=== PATIENT | female | born 1985 | race Caucasian/White ===

== ENCOUNTER → 2020-03-01 15:07 | Outpatient (BNVA) | payer OTHER, SELFPAY | PROVIDERS: Visit Provider Obstetrics & Gynecology | DX: Z12.4 Encounter for screening for malignant neoplasm of cervix (principal); Z20.2 Contact with and (suspected) exposure to infections with a predominantly sexual mode of transmission | CPT/HCPCS: 87491; 87591; 87661; 88175 ==

== ENCOUNTER → 2020-03-02 10:35 | Outpatient (BNVA) | payer OTHER, SELFPAY | PROVIDERS: Visit Provider Obstetrics & Gynecology | DX: Z30.9 Encounter for contraceptive management, unspecified (principal); Z30.42 Encounter for surveillance of injectable contraceptive | CPT/HCPCS: 81025 ==

== ENCOUNTER → 2020-03-22 10:27 | Outpatient (BNVA) | payer OTHER, SELFPAY | PROVIDERS: Visit Provider Obstetrics & Gynecology | DX: Z01.812 Encounter for preprocedural laboratory examination (principal) | CPT/HCPCS: 81025 ==

== ENCOUNTER → 2020-04-01 13:54 | Outpatient (BNVA) | payer OTHER, SELFPAY | PROVIDERS: Visit Provider Obstetrics & Gynecology | DX: Z01.812 Encounter for preprocedural laboratory examination (principal); R87.610 Atypical squamous cells of undetermined significance on cytologic smear of cervix (ASC-US); R87.810 Cervical high risk human papillomavirus (HPV) DNA test positive | CPT/HCPCS: 81025; 88305 ==

== ENCOUNTER 2020-07-22 09:22 | Emergency (ER) | payer OTHER, SELFPAY ==
[2020-07-22 09:30] VITALS: BP 146/94; PULSE 122; RESP 20; TEMP 36.5; O2SAT 97; BMI 29.8
--- NOTE | 2020-07-22 09:45 | PC.PHAR ---
pt states she was at yesterday and got a shot of steroids-pt states she was told to get pepcid otc but hasnt started taking yet
[2020-07-22] MEDS: diphenhydrAMINE 50 mg/mL SDV 1mL IVP (09:56)
[2020-07-22] MEDS: famotidine 20 mg/2 mL INJ 40 MG IVP (09:57)
--- NOTE | 2020-07-22 09:57 | ED_ITS ---
HPI - Allergic Reaction General: Chief complaint: Allergic Reaction Stated complaint: Allergic Reaction Time Seen by Provider: 07/22/20 09:23 History of Present Illness: HPI narrative: 35-year-old female presents to the emergency room with complaint of a rash. She had several reactions in the past she relates that to having tested positive for alpha gal. She is not having difficulty breathing she has urticaria on her extremities to a lesser extent on her face a little bit on her flanks but none on her abdomen or chest or back. States her skin feels like it is burning. She has had this several times in the past. She not sure what she might have gotten into. MD complaint: allergic reaction Onset (ago): minute(s) Exposure: unknown Associated symptoms: Reports facial swelling, itching and rash; Deny abdominal pain, difficulty breathing, dysphagia, dizziness, hoarseness, lip swelling, nausea, tongue swelling or vomiting Severity: moderate Review of Systems Const: Denies: fever(s), chills, body aches, change in appetite, fatigue or malaise ENMT: Denies: hoarseness Card: Denies: chest pain, edema, dyspnea on exertion or orthopnea Resp: Denies: dyspnea, productive cough or non-productive cough GI: Denies: abdominal pain, nausea, vomiting or dysphagia : Denies: flank pain, difficulty voiding, dysuria, urinary frequency or urinary urgency Skin/Breast: Denies: rash or pruritus Neuro: Denies: dizziness All/Imm: Reports: facial swelling; Denies: tongue swelling PFSH ED PFSH: Medical History (Updated 07/22/20 @ 11:19 by Hayder Shannon DO) ASCUS with positive high risk HPV cervical Surgical History H/O lithotripsy (Unknown) x 3 Hx of foot surgery (Unknown) x 2 Hx of oral surgery (Unknown) Family History Mother Thyroid disease Denies family history of Colon cancer Ovarian cancer Diabetes Clotting disorder Hyperlipidemia Breast cancer Hypertension Uterine cancer Stroke Social History (Updated 07/22/20 @ 09:38 by Jesus Medellin RN) Smoking and tobacco status: current every day smoker cigarettes Packs smoked per day: 1 Years cigarettes smoked: 2,016 Alcohol intake: current Alcohol intake frequency: few times a week Substance/Drug Use: never Physical Exam Const: COMMON NORMALS: no acute distress GENERAL APPEARANCE: cooperative and comfortable ORIENTATION/CONSCIOUSNESS: Yes awake, Yes oriented to person, Yes oriented to place and Yes oriented to time HENMT: COMMON NORMALS: normocephalic, atraumatic and hearing grossly normal bilaterally HEAD & SCALP: normocephalic and atraumatic Neck/C-Spine: COMMON NORMALS: no JVD Lymph: LYMPHATIC: no lymphadenopathy noted and no lymphedema noted Resp: COMMON NORMALS: normal respiratory effort, No retractions, No use of accessory muscles and clear to auscultation bilaterally AUSCULTATION: clear to auscultation bilaterally Cardio: COMMON NORMALS: no JVD, regular rate, regular rhythm and No murmurs present (Cardio) RATE: regular rate RHYTHM: regular rhythm GI: COMMON NORMALS: Soft to palpation and No hepatosplenomegaly present AUSCULTATION: Yes normoactive bowel sounds PALPATION: Yes Soft to palpation, No Tenderness to palpation present (GI), No Guarding due to palpation present (GI) and Yes No hepatosplenomegaly present Extremity: COMMON NORMALS: normal to inspection, capillary refill normal, no clubbing, cyanosis or edema, no calf tenderness and no pedal edema Neuro: SENSORIUM/ORIENTATION: Yes oriented to person, Yes oriented to place and Yes oriented to time Skin: NARRATIVE SKIN EXAM: Urticaria on the extremities very slightly on the lower flag just above the belt line. None on the abdomen chest or back. Somewhat on the face no lip swelling no swelling of the posterior pharyngeal wall or uvula. No stridor. Course Vital Signs: Vital signs: Vital Signs Temperature 97.7 F 07/22/20 09:30 Pulse Rate 68 07/22/20 11:31 Respiratory Rate 18 07/22/20 11:31 Blood Pressure 128/88 07/22/20 11:31 Pulse Oximetry 99 07/22/20 11:31 MDM - Allergic Reaction MDM Narrative: Medical decision making narrative: Mildly improved we will discharge her home on steroids and hydroxyzine. Retry to help get her set up with a primary care physician who can get her referred to an communications and signals supervisor at [facility] if has problems breathing. Discharge Plan Discharge Patient Disposition: Home Clinical Impression: Urticaria Condition: Stable Prescriptions: New dexamethasone 6 mg tablet 6 mg PO DAILY Qty: 7 RF: 0 hydroxyzine HCl 25 mg tablet 25 mg PO Q6H PRN (Reason: itching) Qty: 20 RF: 0 No Action diphenhydramine HCl [Benadryl] 25 mg capsule 25 mg PO TID PRN (Reason: unknown) RF: 0 All Day Allergy (cetirizine) 10 mg capsule 20 mg PO BID PRN (Reason: unknown) RF: 0 medroxyprogesterone [Depo-Provera] 150 mg/mL suspension 150 mg IM .every 3 months Qty: 1 RF: 3 famotidine 10 mg Tablet 10 - 20 mg PO PRN RF: 0 Discharge Orders: Discharge ED (Routine); Ordered 07/22/20 Ordered By: Hayder Shannon Discharge Diet: Usual diet Discharge Activity: Resume usual activity Activity Restrictions/Additional Instructions: Management will help get you set up with a primary care physician. Recommend taking the steroids and antihistamines prescribed today then following up with your primary care for referral to an communications and signals supervisor at a tertiary care center. Coding Level of Care Code ED Metal Sorter for [facility] Fwd Exam Comprehensive
[2020-07-22 10:35] VITALS: BP 148/88; PULSE 78; RESP 18; O2SAT 100
[2020-07-22 11:00] VITALS: BP 128/88; PULSE 68; RESP 18; O2SAT 99
[2020-07-22 11:31] VITALS: BP 128/88; PULSE 68; RESP 18; O2SAT 99
--- NOTE | 2020-07-25 15:41 | DCPLANNER ---
manager cardiovascular had message to speak with patient about getting established with a primary care physician. manager cardiovascular called phone number [phone], a voicemail was left for patient to return protective services case worker phone call.
== END 2020-07-22 11:33 | disposition home or self-care (01) ==
PROVIDERS: Emergency Provider Family Medicine
DX: L50.9 Urticaria, unspecified (principal); F17.210 Nicotine dependence, cigarettes, uncomplicated
CPT/HCPCS: 12345; 96374; 96375; 99283; J1200; J2930; J3490

== ENCOUNTER → 2021-05-01 10:23 | Outpatient (BNVA) | payer OTHER, SELFPAY | PROVIDERS: Visit Provider Obstetrics & Gynecology | DX: Z12.4 Encounter for screening for malignant neoplasm of cervix (principal); R87.610 Atypical squamous cells of undetermined significance on cytologic smear of cervix (ASC-US); R87.810 Cervical high risk human papillomavirus (HPV) DNA test positive | CPT/HCPCS: 87624 ==

== ENCOUNTER → 2021-06-28 08:32 | Outpatient (BNVA) | payer OTHER, SELFPAY | PROVIDERS: Visit Provider Obstetrics & Gynecology | DX: D25.1 Intramural leiomyoma of uterus (principal); R10.32 Left lower quadrant pain; N92.0 Excessive and frequent menstruation with regular cycle | CPT/HCPCS: 76830 ==

== ENCOUNTER 2021-07-25 08:19 | Emergency (ER) | payer OTHER, SELFPAY | END 2021-07-25 09:12 | disposition left against medical advice (07) | PROVIDERS: Emergency Provider Family Medicine | DX: Z53.21 Procedure and treatment not carried out due to patient leaving prior to being seen by health care provider (principal) | CPT/HCPCS: 80053; 81000; 83690; 85025 ==

== ENCOUNTER → 2022-05-04 14:30 | Outpatient (BNVA) | payer OTHER, SELFPAY | PROVIDERS: Visit Provider Obstetrics & Gynecology | DX: R39.9 Unspecified symptoms and signs involving the genitourinary system (principal); Z12.4 Encounter for screening for malignant neoplasm of cervix; R87.610 Atypical squamous cells of undetermined significance on cytologic smear of cervix (ASC-US); R87.810 Cervical high risk human papillomavirus (HPV) DNA test positive; Z30.09 Encounter for other general counseling and advice on contraception | CPT/HCPCS: 81000; 87624 ==

== ENCOUNTER → 2022-06-14 10:49 | Outpatient (BNVA) | payer OTHER, SELFPAY | PROVIDERS: Visit Provider Registered Nurse Neonatal Intensive Care | DX: M54.9 Dorsalgia, unspecified (principal); T78.40XA Allergy, unspecified, initial encounter | CPT/HCPCS: 81000; 87086 ==

== ENCOUNTER → 2022-07-17 13:08 | Outpatient (BNVA) | payer OTHER, SELFPAY | PROVIDERS: Visit Provider Obstetrics & Gynecology | DX: Z30.09 Encounter for other general counseling and advice on contraception (principal); R87.610 Atypical squamous cells of undetermined significance on cytologic smear of cervix (ASC-US); R87.810 Cervical high risk human papillomavirus (HPV) DNA test positive; Z30.017 Encounter for initial prescription of implantable subdermal contraceptive | CPT/HCPCS: 81025; 88305 ==

== ENCOUNTER 2022-12-04 09:22 | Inpatient (IN) | payer OTHER, SELFPAY ==
[2022-12-04] VITALS (10 sets, daily range): BP systolic 105–144; BP diastolic 69–110; PULSE 64–96; RESP 16–18; TEMP 36.4–37.1; O2SAT 92–99; BMI 28.2
--- NOTE | 2022-12-04 09:56 | W.ED.ABDPA2 ---
Documented by User: CHICHI Huang 12/04/22 17:18 HPI - Abdominal Pain General: Chief Complaint: Abdominal Pain Stated Complaint: urogenital Time Seen by Provider: 12/04/22 09:38 History of Present Illness: Patient is a 37-year-old female comes to the ED with flank pain. Patient has a history of kidney stones. She states that her flank pain started approximately 10 days ago. She saw all her PCP at [facility] and they did an abdominal x-ray and could see kidney stones on the left side. Currently she is having 7 out of 10 pain in her flanks bilaterally but states that her right flank hurts a lot worse than her left. Last night she has had trouble urinating and this morning she was able to urinate a little bit. She nausea multiple episodes of emesis last night as well. Associated Symptoms: Denies chills, constipation, diarrhea, dysuria, fever(s), hematochezia, hematuria, nausea and vomiting Review of Systems Const: Denies: fever(s), chills or fatigue Eyes: Denies: change in vision or eye discomfort ENMT: Denies: throat pain, odynophagia, nasal discharge or nasal congestion Card: Denies: chest pain, palpitations, edema, swelling of feet/ankles, dyspnea on exertion or orthopnea Resp: Denies: dyspnea, productive cough or non-productive cough GI: Denies: abdominal pain, nausea, vomiting, diarrhea, constipation or hematochezia : Reports: flank pain; Denies: dysuria or hematuria Musc: Denies: neck pain, back pain or extremity swelling Skin/Breast: Denies: rash or new lesions Neuro: Denies: headache(s), numbness in extremities or weakness in extremities PFSH ED PFSH: Medical History Acute left flank pain ASCUS with positive high risk HPV cervical Kidney stones Pyelonephritis Surgical History H/O lithotripsy (Unknown) x 3 Hx of foot surgery (Unknown) x 2 Hx of oral surgery (Unknown) Family History Mother Thyroid disease Thyroid cancer Denies family history of Colon cancer Ovarian cancer Diabetes Clotting disorder Hyperlipidemia Breast cancer Anesthesia complication Bleeding disorder Hypertension Uterine cancer Stroke Social History Smoking and tobacco status: current every day smoker cigarettes Packs smoked per day: 1 Alcohol intake: current Alcohol intake frequency: 3 or more drinks per day Alcohol type: hard liquor Substance/Drug Use: never Physical Exam Const: COMMON NORMALS: patient oriented x3 and alert GENERAL APPEARANCE: cooperative HENMT: COMMON NORMALS: normocephalic HEAD & SCALP: normocephalic MOUTH: Normal oral and palatal mucosa present THROAT: posterior oropharynx normal and uvula midline Neck/C-Spine: COMMON NORMALS: supple GENERAL: Yes normal visual inspection Resp: COMMON NORMALS: normal respiratory effort, No retractions, No use of accessory muscles and clear to auscultation bilaterally AUSCULTATION: clear to auscultation bilaterally Cardio: COMMON NORMALS: regular rate, regular rhythm, S1 normal heart sound present, S2 normal heart sound present, No gallops present (Cardio), No clicks present (Cardio), No murmurs present (Cardio) and Peripheral pulses 2+ throughout RATE: regular rate RHYTHM: regular rhythm HEART SOUNDS: S1 normal heart sound present and S2 normal heart sound present PERIPHERAL PULSES: Peripheral pulses 2+ throughout GI: COMMON NORMALS: Normal to inspection, nondistended, normoactive bowel sounds present, Soft to palpation, non-tender and no masses PALPATION: Yes Soft to palpation : BLADDER/KIDNEY EXAM: Yes CVA tenderness bilateral Back/Pelvis: GENERAL BACK: Yes CVA tenderness Extremity: COMMON NORMALS: normal to inspection Neuro: COMMON NORMALS: patient oriented x3 SENSORIUM/ORIENTATION: Yes alert GAIT: Yes Normal gait present Skin: GENERAL SKIN EXAM: dry skin Course Vital Signs: Vital signs: Vital Signs Temperature 97.6 F 12/04/22 17:13 Pulse Rate 86 12/04/22 17:13 Respiratory Rate 16 12/04/22 17:13 Blood Pressure 125/79 12/04/22 17:13 Pulse Oximetry 95 12/04/22 17:13 Oxygen Delivery Me thod Room Air 12/04/22 17:13 MDM - Abdominal Pain Medical Decision Making Patient is a 37-year-old female comes to the ED with bilateral flank pain. Vitals are stable. Patient has bilateral CVA tenderness. CT of abdomen pelvis shows a kidney stone approximately 10 x 8 mm in the left UPJ. Urine, CBC and CMP were unremarkable. Patient's pain was difficult to control. I discussed case with Dr. Mata and he reviewed the CT images and he recommended patient be admitted for pain control and procedure to have stone removed tomorrow. Lab Data I reviewed the patient's lab results. 12/04/22 09:49 12/04/22 09:49 Labs/Radiology: Radiology Impressions Abdomen/Pelvis CT 12/04/22 09:57 IMPRESSION: 1. Moderate to severe LEFT hydronephrosis secondary to a large 10 x 8 mm calcification at the UP junction. 2. Additional bilateral nonobstructing renal calcifications. Normal appendix. Laboratory Results WBC 4.1 10^3/uL (4.0-10.0) 12/04/22 09:49 RBC 4.42 10^6/uL (4.1-5.3) 12/04/22 09:49 Hgb 15.5 g/dL (11.5-15.3) H 12/04/22 09:49 Hct 45.3 % (37.0-47.0) 12/04/22 09:49 MCV 102.5 fl (81-99) H 12/04/22 09:49 MCH 35.1 pg (28.0-34.0) H 12/04/22 09:49 MCHC 34.2 g/dL (30.0-36.0) 12/04/22 09:49 RDW 11.9 % (12.1-15.1) L 12/04/22 09:49 Plt Count 303 10^3/cmm (130-400) 12/04/22 09:49 MPV 9.7 fL (7.4-10.4) 12/04/22 09:49 Neut % (Auto) 61.4 % 12/04/22 09:49 Lymph % (Auto) 27.5 % 12/04/22 09:49 [place] % (Auto) 8.7 % 12/04/22 09:49 Eos % (Auto) 1.7 % 12/04/22 09:49 Baso % (Auto) 0.7 % 12/04/22 09:49 Neut # (Auto) 2.54 10^3/uL (1.8-7.7) 12/04/22 09:49 Lymph # (Auto) 1.1 10^3/uL (0.8-4.8) 12/04/22 09:49 [place] # (Auto) 0.4 10^3/uL (0.2-0.9) 12/04/22 09:49 Eos # (Auto) 0.1 10^3/uL (0.0-0.8) 12/04/22 09:49 Baso # (Auto) 0.0 10^3/uL (0.0-0.1) 12/04/22 09:49 Nucleated RBC % (auto) 0 % 12/04/22 09:49 Nucleated RBCs # 0.0 /100WBC 12/04/22 09:49 Sodium 138 mmol/L (136-145) 12/04/22 09:49 Potassium 3.7 mmol/L (3.5-5.1) 12/04/22 09:49 Chloride 101 mmol/L (98-107) 12/04/22 09:49 Carbon Dioxide 23 mmol/L (22-29) 12/04/22 09:49 Anion Gap 17.7 (5-19) 12/04/22 09:49 BUN 8 mg/dL (6-20) 12/04/22 09:49 Creatinine 0.6 mg/dL (0.5-0.9) 12/04/22 09:49 GFR Calculation 112.5 mL/min (90-130) 12/04/22 09:49 Glucose 69 mg/dL (65-115) 12/04/22 09:49 Calculated Osmolality 283 mOsm/kg (285-295) L 12/04/22 09:49 Calcium 9.5 mg/dL (8.5-10.5) 12/04/22 09:49 Total Bilirubin 0.8 mg/dL (0.15-1.2) 12/04/22 09:49 AST 20 U/L (0-32) 12/04/22 09:49 ALT 17 U/L (0-33) 12/04/22 09:49 Alkaline Phosphatase 72 U/L (35-105) 12/04/22 09:49 Total Protein 7.7 g/dL (6.6-8.7) 12/04/22 09:49 Albumin 5.0 g/dL (3.5-5.2) 12/04/22 09:49 Globulin 2.7 g/dL (1.3-4.6) 12/04/22 09:49 Lipase 12 U/L (13-60) L 12/04/22 09:49 HCG, Qual Negative (Negative) 12/04/22 09:49 Urine Color Dark yellow (Yellow) 12/04/22 09:40 Urine Appearance Sl hazy (CLEAR) A 12/04/22 09:40 Urine pH 6 (5-7) 12/04/22 09:40 Ur Specific [place] 1.025 (1.005-1.030) 12/04/22 09:40 Urine Protein Neg (Negative) 12/04/22 09:40 Urine Glucose (UA) Norm (Normal) 12/04/22 09:40 Urine Ketones 1+ (Negative) H 12/04/22 09:40 Urine Blood Neg (Negative) 12/04/22 09:40 Urine Nitrate Negative (Negative) 12/04/22 09:40 Urine Bilirubin Neg (Negative) 12/04/22 09:40 Urine Urobilinogen Norm mg/dL (Negative) 12/04/22 09:40 Ur Leukocyte Esterase Negative (Negative) 12/04/22 09:40 Urine RBC Rare /hpf (0-2) 12/04/22 09:40 Urine WBC 10-15 /hpf (0-5) H 12/04/22 09:40 Ur Squamous Epith Cells 10-15 /hpf (0-5) H 12/04/22 09:40 Amorphous Sediment Not Reportable 12/04/22 09:40 Urine Bacteria Trace /hpf (NONE) 12/04/22 09:40 Urine Mucus Trace /hpf 12/04/22 09:40 Discharge Plan Discharge Patient Disposition: Admitted As Inpatient Admit Provider: Ryder Mata Clinical Impression: Kidney stones Condition: Stable Sign Out Sign Out Data: Patient Sign Out occurred on 12/04/22 at 13:38. Patient's care was discussed, and care was transferred from to Hayder Shannon DO. 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 [employer]g Fwd Documented by User: Hayder Shannon DO 12/04/22 16:49 HPI - Abdominal Pain General: Chief Complaint: Abdominal Pain Stated Complaint: urogenital Time Seen by Provider: 12/04/22 09:38 [facility] ED PFSH: Medical History Acute left flank pain ASCUS with positive high risk HPV cervical Kidney stones Pyelonephritis Surgical History H/O lithotripsy (Unknown) x 3 Hx of foot surgery (Unknown) x 2 Hx of oral surgery (Unknown) Family History Mother Thyroid disease Thyroid cancer Denies family history of Colon cancer Ovarian cancer Diabetes Clotting disorder Hyperlipidemia Breast cancer Anesthesia complication Bleeding disorder Hypertension Uterine cancer Stroke Social History Smoking and tobacco status: current every day smoker cigarettes Packs smoked per day: 1 Alcohol intake: current Alcohol intake frequency: 3 or more drinks per day Alcohol type: hard liquor Substance/Drug Use: never Course Vital Signs: Vital signs: Vital Signs Temperature 97.6 F 12/04/22 17:13 Pulse Rate 86 12/04/22 17:13 Respiratory Rate 16 12/04/22 17:13 Blood Pressure 125/79 12/04/22 17:13 Pulse Oximetry 95 12/04/22 17:13 Oxygen Delivery Me thod Room Air 12/04/22 17:13 MDM - Abdominal Pain Medical Decision Making Patient is a 37-year-old female comes to the ED with bilateral flank pain. Vitals are stable. Patient has bilateral CVA tenderness. CT of abdomen pelvis shows a kidney stone approximately 10 x 8 mm in the left UPJ. Urine, CBC and CMP were unremarkable. Patient's pain was difficult to control. I discussed case with Dr. Mata and he reviewed the CT images and he recommended patient be admitted for pain control and procedure to have stone removed tomorrow. Chart reviewed and patient discussed with midlevel. Agree with assessment and plan. Orders written for admission Lab Data 12/04/22 09:49 12/04/22 09:49 Labs/Radiology: Radiology Impressions Abdomen/Pelvis CT 12/04/22 09:57 IMPRESSION: 1. Moderate to severe LEFT hydronephrosis secondary to a large 10 x 8 mm calcification at the UP junction. 2. Additional bilateral nonobstructing renal calcifications. Normal appendix. Laboratory Results WBC 4.1 10^3/uL (4.0-10.0) 12/04/22 09:49 RBC 4.42 10^6/uL (4.1-5.3) 12/04/22 09:49 Hgb 15.5 g/dL (11.5-15.3) H 12/04/22 09:49 Hct 45.3 % (37.0-47.0) 12/04/22 09:49 MCV 102.5 fl (81-99) H 12/04/22 09:49 MCH 35.1 pg (28.0-34.0) H 12/04/22 09:49 MCHC 34.2 g/dL (30.0-36.0) 12/04/22 09:49 RDW 11.9 % (12.1-15.1) L 12/04/22 09:49 Plt Count 303 10^3/cmm (130-400) 12/04/22 09:49 MPV 9.7 fL (7.4-10.4) 12/04/22 09:49 Neut % (Auto) 61.4 % 12/04/22 09:49 Lymph % (Auto) 27.5 % 12/04/22 09:49 [place] % (Auto) 8.7 % 12/04/22 09:49 Eos % (Auto) 1.7 % 12/04/22 09:49 Baso % (Auto) 0.7 % 12/04/22 09:49 Neut # (Auto) 2.54 10^3/uL (1.8-7.7) 12/04/22 09:49 Lymph # (Auto) 1.1 10^3/uL (0.8-4.8) 12/04/22 09:49 [place] # (Auto) 0.4 10^3/uL (0.2-0.9) 12/04/22 09:49 Eos # (Auto) 0.1 10^3/uL (0.0-0.8) 12/04/22 09:49 Baso # (Auto) 0.0 10^3/uL (0.0-0.1) 12/04/22 09:49 Nucleated RBC % (auto) 0 % 12/04/22 09:49 Nucleated RBCs # 0.0 /100WBC 12/04/22 09:49 Sodium 138 mmol/L (136-145) 12/04/22 09:49 Potassium 3.7 mmol/L (3.5-5.1) 12/04/22 09:49 Chloride 101 mmol/L (98-107) 12/04/22 09:49 Carbon Dioxide 23 mmol/L (22-29) 12/04/22 09:49 Anion Gap 17.7 (5-19) 12/04/22 09:49 BUN 8 mg/dL (6-20) 12/04/22 09:49 Creatinine 0.6 mg/dL (0.5-0.9) 12/04/22 09:49 GFR Calculation 112.5 mL/min (90-130) 12/04/22 09:49 Glucose 69 mg/dL (65-115) 12/04/22 09:49 Calculated Osmolality 283 mOsm/kg (285-295) L 12/04/22 09:49 Calcium 9.5 mg/dL (8.5-10.5) 12/04/22 09:49 Total Bilirubin 0.8 mg/dL (0.15-1.2) 12/04/22 09:49 AST 20 U/L (0-32) 12/04/22 09:49 ALT 17 U/L (0-33) 12/04/22 09:49 Alkaline Phosphatase 72 U/L (35-105) 12/04/22 09:49 Total Protein 7.7 g/dL (6.6-8.7) 12/04/22 09:49 Albumin 5.0 g/dL (3.5-5.2) 12/04/22 09:49 Globulin 2.7 g/dL (1.3-4.6) 12/04/22 09:49 Lipase 12 U/L (13-60) L 12/04/22 09:49 HCG, Qual Negative (Negative) 12/04/22 09:49 Urine Color Dark yellow (Yellow) 12/04/22 09:40 Urine Appearance Sl hazy (CLEAR) A 12/04/22 09:40 Urine pH 6 (5-7) 12/04/22 09:40 Ur Specific [place] 1.025 (1.005-1.030) 12/04/22 09:40 Urine Protein Neg (Negative) 12/04/22 09:40 Urine Glucose (UA) Norm (Normal) 12/04/22 09:40 Urine Ketones 1+ (Negative) H 12/04/22 09:40 Urine Blood Neg (Negative) 12/04/22 09:40 Urine Nitrate Negative (Negative) 12/04/22 09:40 Urine Bilirubin Neg (Negative) 12/04/22 09:40 Urine Urobilinogen Norm mg/dL (Negative) 12/04/22 09:40 Ur Leukocyte Esterase Negative (Negative) 12/04/22 09:40 Urine RBC Rare /hpf (0-2) 12/04/22 09:40 Urine WBC 10-15 /hpf (0-5) H 12/04/22 09:40 Ur Squamous Epith Cells 10-15 /hpf (0-5) H 12/04/22 09:40 Amorphous Sediment Not Reportable 12/04/22 09:40 Urine Bacteria Trace /hpf (NONE) 12/04/22 09:40 Urine Mucus Trace /hpf 12/04/22 09:40 Discharge Plan Discharge Patient Disposition: Admitted As Inpatient Admit Provider: Ryder Mata Clinical Impression: Kidney stones Condition: Stable Sign Out Sign Out Data: Patient Sign Out occurred on 12/04/22 at 13:38. Patient's care was discussed, and care was transferred from to Hayder Shannon DO. 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
--- NOTE | 2022-12-04 09:57 | CT_ITS ---
WS: [id number] CT ABDOMEN AND PELVIS NONCONTRAST HISTORY: Bilateral flank pain, right more painful than the left TECHNIQUE: Imaging performed through the abdomen and pelvis. Coronal and sagittal reformats are submi tted. All CT scans at [facility] use at least one of these dose optimization techniques: auto mated exposure control; mA and/or kV adjustment per patient size (includes targeted exams where dose is matched to clinical indication); or iterative reconstruction. DLP: 564.36 mGy.cm COMPARISON: 01/30/2018 Lower thorax: Lung bases are clear. Visualized heart is normal. No hiatal hernia. Liver: Normal size liver. No mass or bile duct dilatation. Gallbladder: Normal gallbladder. No pericholecystic fluid or cholelithiasis. No gallbladder wall thic kening. Pancreas: Normal size and attenuation. Normal pancreatic duct. No pancreatitis or mass. Spleen: Normal. Adrenal glands: Normal. No mass. Right kidney: Normal size. Nonobstructing calcifications in the renal pelvis. No obstruction. Largest calcification is 3 mm. Left kidney: Enlarged edematous LEFT kidney with moderate to severe hydronephrosis. Renal obstruction secondary to a large calcification measuring 10 x 8 mm at the UP junction. Ureter distal to this aaron cification is normal. There are a few additional calcifications which are nonobstructing in the LEFT renal pelvis. Aorta: Normal abdominal aorta, no aneurysm or atherosclerosis. No free fluid, intraperitoneal air or significant lymphadenopathy. GI tract: Normal noncontrast imaging of the stomach, small bowel and colon. No obstruction or wall th ickening. Normal appendix. Abdominal wall: Negative. No hernia. Pelvis: No free fluid. Uterus is normal size. RIGHT ovarian follicle maximum diameter of 2.4 cm. 1. Osseous structures: Bone island LEFT ilium and RIGHT hip. CT/CT kidney stone [id number] IMPRESSION: 1. Moderate to severe LEFT hydronephrosis secondary to a large 10 x 8 mm calcif ication at the UP junction. 2. Additional bilateral nonobstructing renal calcifications. Normal appendix.
[2022-12-04 10:05] LABS: Basophils % 0.7 %; Eosinophils # 0.1 10^3/uL (0.0-0.8); Eosinophils % 1.7 %; Hematocrit 45.3 % (37.0-47.0); Hemoglobin 15.5 g/dL (11.5-15.3); Lymphocytes # 1.1 10^3/uL (0.8-4.8); Lymphocytes % 27.5 %; Mean Corpuscular HGB Conc 34.2 g/dL (30.0-36.0); Mean Corpuscular Hemoglobin 35.1 pg (28.0-34.0); Mean Corpuscular Volume 102.5 fl (81-99); Mean Platelet Volume 9.7 fL (7.4-10.4); Monocytes # 0.4 10^3/uL (0.2-0.9); Monocytes % 8.7 %; Neutrophils # 2.54 10^3/uL (1.8-7.7); Neutrophils % 61.4 %; Nucleated Red Blood Cells % 0 %; Platelet Count 303 10^3/cmm (130-400); Red Blood Count 4.42 10^6/uL (4.1-5.3); Red Cell Distribution Width 11.9 % (12.1-15.1); White Blood Count 4.1 10^3/uL (4.0-10.0)
[2022-12-04] MEDS: ondansetron 2 mg/ML SDV 2 mL 4 MG IVP ×2 (10:22→16:28)
[2022-12-04] MEDS: sodium chloride 0.9% 1,000 ML 999 ML IV (10:22)
[2022-12-04] MEDS: morphine 4 mg/mL SDV 1 mL IVP ×2 (10:22→21:41)
[2022-12-04 10:27] LABS: Alanine Aminotransferase 17 U/L (0-33); Alkaline Phosphatase 72 U/L (35-105); Anion Gap 17.7 (5-19); Aspartate Amino Transferase 20 U/L (0-32); Blood Urea Nitrogen 8 mg/dL (6-20); Calcium 9.5 mg/dL (8.5-10.5); Carbon Dioxide 23 mmol/L (22-29); Chloride 101 mmol/L (98-107); Globulin 2.7 g/dL (1.3-4.6); Glomerular Filtration Rate 112.5 mL/min (90-130); Glucose 69 mg/dL (65-115); HCG, Serum Qual Negative (Negative); Lipase 12 U/L (13-60); Osmolality Calculated 283 mOsm/kg (285-295); Potassium 3.7 mmol/L (3.5-5.1); Sodium 138 mmol/L (136-145); Total Bilirubin 0.8 mg/dL (0.15-1.2); Total Protein 7.7 g/dL (6.6-8.7)
[2022-12-04 11:02] LABS: Bilirubin Urine Neg (Negative); Blood Urine Neg (Negative); Glucose Urine UA Norm (Normal); Ketones Urine 1+ (Negative); Nitrate Urine Negative (Negative); Protein Urine Neg (Negative); Specific Gravity, Urine 1.025 (1.005-1.030); Urine Appearance SL Hazy (CLEAR); Urine Color Dark Yellow (Yellow); pH Urine 6 (5-7)
[2022-12-04 11:03] LABS: Add Urine Microscopic? YES; Bacteria Urine TRACE /hpf; Leukocyte Esterase Urine Negative (Negative); RBC Urine RARE /hpf (0-2); Urobilinogen Urine Norm (Negative)
[2022-12-04 11:04] LABS: Add Urine Culture? No; Mucus Urine TRACE /hpf
[2022-12-04] MEDS: HYDROmorphone 1 mg/mL INJ 1 mL IVP (11:48)
[2022-12-04] MEDS: nicotine 21 mg Patch 1 PATCH TRANSDERMA (11:51)
[2022-12-04] MEDS: metoclopramide 5 mg/mL SDV 2 mL 10 MG IVP ×2 (12:52→21:16)
--- NOTE | 2022-12-04 12:56 | PC.NURSE ---
meds pushed by aiyana lazo rn
--- NOTE | 2022-12-04 13:17 | PC.PHAR ---
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
--- NOTE | 2022-12-04 14:18 | P.HP_ITS ---
Providers/Chief Complaint Chief Complaint: urogenital History of Present Illness Nilsa Bernard is a 37 year old female to the emergency department for refractory back pain in both flanks but right greater than sign left. History of stones. CT scan was ordered. It demonstrated a chronically obstructing left UPJ stone measuring about 1.1 cm with significant amount of ureteral inflam matory changes surrounding the stone. No pathology could be identified on the right side. She also did complain of some irritative type voiding symptoms and at times feeling that she could not empty completely. Pain could not be readily controlled in the emergency department. She was admitted because of the severity of her pain. On careful questioning she admitted that she had some off-and-on much lesser pain for >a month. No evidence of infection. White count was normal. Creatinine was 0.6. Urinalysis did show pyuria. CT scan: 1 cm stone obstructing the left UPJ. Severe pelvocaliectasis with evidence of some renal parenchymal thinning likely pointing to the stone being in that place for quite some time. Also a small nonobstructing RIGHT renal calculus Historically she has passed multiple stones and has had extracorporeal shockwave lithotripsy along with stenting on several occasions. She reports that the stones have been confirmed to have been cleared after treatment. Discussed the findings in detail with her and her family member. Reviewed the likelihood that this is a chronic process which may make it much more difficult to to clear with conventional methods. Extracorporal shockwave lithotripsy was explained as well as endoscopic approaches both retrograde and antegrade. Due to the obvious chronic inflammatory changes on the CT scan surrounding the stone I recommended endoscopic approach first. Did review that occasionally it is not possible to safely access the stone with ureteroscope which would lead to a stent for passive dilation and reattempt later with a much safer capacity to access the stone. Also reviewed the possibility of inability to access at all even with a wire or stent in a retrograde approach necessitating transfer to institution with interventional radiology for percutaneous/antegrade access possible stent placement versus percutaneous nephrostomy tube. Benefits risk potential complications alternatives thoroughly reviewed with the patient. She has good questions and seemed content with my answers. Informed consent was obtained for cystoscopy, LEFT: Retrograde, ureteroscopy, laser, stent Review of Systems Const: Denies: fever(s) or chills Eyes: Denies: change in vision or yellow eyes ENMT: Denies: hoarseness Card: Denies: chest pain or palpitations Resp: Denies: dyspnea, productive cough or wheezing GI: Reports: abdominal pain, nausea and vomiting; Denies: change in bowel habits : Reports: flank pain, difficulty voiding and dysuria Musc: Denies: joint redness Skin/Breast: Denies: jaundice Neuro: Denies: Slurred speech present or seizure-like activity Psych: Denies: difficulty concentrating Endo: Denies: flushing Beny/Lymph: Denies: easy bruising or easy bleeding All/Imm: Denies: acute wheezing Medications/Allergies Home Medications Medication Instructions Recorded Confirmed Last Taken Type hydroxyzine HCl 25 mg tablet 25 mg PO Q6H PRN itching #20 tabs 07/22/20 12/04/22 Unknown Rx buspirone 10 mg tablet 10 mg PO TID PRN Anxiety 05/01/21 12/04/22 Unknown History diphenhydramine HCl 25 mg capsule 25 - 50 mg PO TID PRN Allergy 12/04/22 12/04/22 Unknown History (Benadryl) Symptoms famotidine 20 mg tablet (Pepcid) 20 mg PO DAILY PRN Heartburn 12/04/22 12/04/22 Unknown History ibuprofen 200 mg tablet 600 mg PO Q6H PRN Pain 12/04/22 12/04/22 Unknown History meloxicam 7.5 mg tablet 7.5 mg PO BEDTIME 12/04/22 12/04/22 2 Days Ago History ~12/02/22 ondansetron 4 mg disintegrating 4 mg PO BID PRN Nausea And Vomiting 12/04/22 12/04/22 12/04/22 07:00 History tablet Allergies Allergy/AdvReac Type Severity Reaction Status Date / Time Alpha-Gal Allergy Unknown Verified 12/04/22 13:09 ([id number]-Gwscl-4,3-Gala beef derived (bovine) Allergy ALGY-Hives Verified 07/17/22 12:49 gelatin Allergy ALGY-Hives Verified 07/17/22 12:49 pork derived (porcine) Allergy ALGY-Hives Verified 07/17/22 12:49 gel capsules Allergy ALGY-Hives Uncoded 07/17/22 12:49 PFSH Acute PFSH: Medical History Acute left flank pain ASCUS with positive high risk HPV cervical Kidney stones Pyelonephritis Surgical History H/O lithotripsy (Unknown) x 3 Hx of foot surgery (Unknown) x 2 Hx of oral surgery (Unknown) Family History Mother Thyroid disease Thyroid cancer Denies family history of Colon cancer Ovarian cancer Diabetes Clotting disorder Hyperlipidemia Breast cancer Anesthesia complication Bleeding disorder Hypertension Uterine cancer Stroke Social History Smoking and tobacco status: current every day smoker cigarettes Packs smoked per day: 1 Alcohol intake: current Alcohol intake frequency: 3 or more drinks per day Alcohol type: hard liquor Substance/Drug Use: never Vitals/I&O/Wt Last Vital Signs Temp 98.7 F 12/04/22 09:32 Pulse 68 12/04/22 13:16 Resp 16 12/04/22 11:52 BP 127/75 12/04/22 13:16 Pulse Ox 92 12/04/22 13:16 O2 Del Method Room Air 12/04/22 13:16 12/03/22 12/04/22 12/04/22 22:59 06:59 14:59 Intake Total 1000 / 1000 Balance 1000 / 1000 Weight last 48 hrs Weight 175 lb Physical Exam Const: COMMON NORMALS: alert and well nourished GENERAL APPEARANCE: well kempt and well developed ORIENTATION/CONSCIOUSNESS: not confused HENMT: COMMON NORMALS: normocephalic HEAD & SCALP: normal to inspection and normocephalic Eye: COMMON NORMALS: conjunctivae normal and no scleral icterus CONJUNCTIVA: Yes conjunctivae normal Neck/C-Spine: GENERAL: Yes normal visual inspection Lymph: LYMPHATIC: no lymphadenopathy noted and no lymphedema noted Chest: OTHER: Normal chest movements Resp: COMMON NORMALS: normal respiratory effort EFFORT & INSPECTION: Yes able to speak in complete sentences, No labored and No Actively coughing Cardio: COMMON NORMALS: regular rate and regular rhythm GI: OTHER: Bilateral upper quadrant tenderness. No rebound. No surgical abdomen. No masses. No bloating : OTHER: Bladder nondistended. Bilateral CVA tenderness. Back/Pelvis: OTHER: Erector muscle tenderness bilaterally Extremity: COMMON NORMALS: no clubbing, cyanosis or edema Neuro: COMMON NORMALS: no focal motor deficits SENSORIUM/ORIENTATION: Yes alert Psych: COMMON NORMALS: mental status grossly normal APPEARANCE: Yes grossly normal and Yes well kempt ATTITUDE: Yes calm and Yes engaged Skin: COMMON NORMALS: no rashes or lesions noted and no jaundice GENERAL SKIN EXAM: no rashes or lesions noted Data 12/04/22 09:49 12/04/22 09:49 Attestations Medical Necessity Statement*: Refractory pain. Large obstructing, chronically so, left proximal ureteral stone with severe hydronephrosis and some degree of left renal atrophy the indicating longstanding obstructive changes. Large stone will not spontaneously passed. Coding Level of Care Code Acute Code for Chg Fwd Diagnoses
[2022-12-04] MEDS: sodium chloride 0.9% 1,000 ML 150 ML IV (16:20)
[2022-12-04] MEDS: ketorolac 30 mg/mL INJ 15 MG IVP (16:30)
[2022-12-04] MEDS: cefTRIAXone 1,000 MG in sodium chloride 0.9% (plus) 50 ML 100 MG IV (18:21)
[2022-12-04] MEDS: diphenhydrAMINE 50 mg/mL SDV 1mL 25 MG IVP (21:36)
[2022-12-05] VITALS (22 sets, daily range): BP systolic 109–140; BP diastolic 72–95; PULSE 66–100; RESP 13–22; TEMP 36.1–37.1; O2SAT 92–100
--- NOTE | 2022-12-05 | SC_ITS ---
WS: [id number] [place] [facility] REASON FOR EXAM: LEFT URETERAL STENT; LEFT UPJ STONE WITH HYDRONEPHROSIS FINDINGS: Retrograde left ureteral pyelogram demonstrates large calculus at the UPJ. Dilated collecting system in the left kidney. Properly positioned left ureteral stent deployed. [facility] IMPRESSION: Left retrograde ureteropyelogram demonstrating calculus and hydronephrosis. Lef t ureteral stent deployed.
[2022-12-05] MEDS: sodium chloride 0.9% 1,000 ML 150 ML IV ×2 (01:47→10:22)
[2022-12-05] MEDS: diphenhydrAMINE 50 mg/mL SDV 1mL 25 MG IVP ×2 (02:26→09:31)
[2022-12-05] MEDS: morphine 4 mg/mL SDV 1 mL IVP (04:09)
[2022-12-05] MEDS: cefTRIAXone 1,000 MG in sodium chloride 0.9% (plus) 50 ML 100 MG IV ×2 (05:09→14:30)
[2022-12-05 05:21] LABS: Anion Gap 13.5 (5-19); Blood Urea Nitrogen 9 mg/dL (6-20); Calcium 7.8 mg/dL (8.5-10.5); Carbon Dioxide 22 mmol/L (22-29); Chloride 106 mmol/L (98-107); Glomerular Filtration Rate 138.8 mL/min (90-130); Glucose 65 mg/dL (65-115); Osmolality Calculated 283 mOsm/kg (285-295); Potassium 3.5 mmol/L (3.5-5.1); Sodium 138 mmol/L (136-145)
[2022-12-05] MEDS: metoclopramide 5 mg/mL SDV 2 mL 10 MG IVP (05:38)
--- NOTE | 2022-12-05 07:22 | PM.PN ---
Subjective Subjective: Urology follow-up: Hospital day #2. Overall doing well. Vital signs are normal without evidence of progression from an infection concern perspective. Creatinine is 0.5. White count is 4.1. Had a lot of nausea last night requiring repetitive medication. Pain is better controlled this morning. We reviewed her options again. See HPI in the history and physical. Ultimately it was decided to proceed as we had offered yesterday for endoscopic approach to the chronically impacted obstructing left UPJ stone. The goal will be to treat the stone definitively but place a stent if the stone is not readily accessible safely with the ureteroscope. Also discussed the possibility of inability to safely access the upper tract in a retrograde fashion due to the chronic impacted nature of the stone. This would necessitate transfer to interventional radiology available institution for percutaneous/antegrade access She expressed readiness to proceed. We will plan on that sometime this afternoon when time is available in the operating room. Medications: Reviewed: Yes Vitals/I&O/Wt Last Vital Signs Temp 98.6 F 12/05/22 04:00 Pulse 74 12/05/22 04:00 Resp 16 12/05/22 04:09 BP 109/72 12/05/22 04:00 Pulse Ox 96 12/05/22 04:00 O2 Del Method Room Air 12/05/22 04:00 12/04/22 12/05/22 12/05/22 22:59 06:59 14:59 Intake Total 50 / 1050 1050 / 2100 Output Total 120 / 120 Balance 50 / 1050 930 / 1980 Weight last 48 hrs Weight 175 lb Physical Exam Const: COMMON NORMALS: alert GENERAL APPEARANCE: well developed ORIENTATION/CONSCIOUSNESS: not confused HENMT: COMMON NORMALS: normocephalic HEAD & SCALP: normal to inspection and normocephalic Chest: OTHER: Normal chest movements Resp: COMMON NORMALS: normal respiratory effort EFFORT & INSPECTION: Yes able to speak in complete sentences, No labored and No Actively coughing Neuro: SENSORIUM/ORIENTATION: Yes alert Psych: COMMON NORMALS: mental status grossly normal APPEARANCE: Yes grossly normal ATTITUDE: Yes calm and Yes engaged Skin: COMMON NORMALS: no rashes or lesions noted and no jaundice GENERAL SKIN EXAM: no rashes or lesions noted Data 12/04/22 09:49 12/05/22 03:49 A&P Assessment and plan (1) Left ureteral calculus: (2) Hydronephrosis, left: (3) Renal atrophy, left: Plan To the operating room today for cystoscopy, LEFT: Retrograde, ureteroscopy, laser, stent if possible if not then stent alone for passive dilation and drainage of the chronically obstructed system. Attestations Medical Necessity Statement*: Will require surgery. Coding Level of Care Code Acute Code for Chg Fwd Diagnoses Left ureteral calculus N20.1 Hydronephrosis, left N13.30 Renal atrophy, left N26.1
[2022-12-05] MEDS: scopolamine 1.5 Patch 1 PATCH TRANSDERMA (13:25)
[2022-12-05] MEDS: sodium chloride 0.9% 1,000 ML 30 ML IV (13:25)
--- NOTE | 2022-12-05 13:47 | P.ANESASSM_ITS ---
Pre-Anesthetic Assessment Height/Weight: Height 1.68 m Weight 79.379 kg Temp Pulse Resp BP Pulse Ox O2 Del Method 97.8 F 66 18 126/82 97 Room Air 12/05/22 13:18 12/05/22 13:18 12/05/22 13:18 12/05/22 13:18 12/05/22 13:18 12/05/22 13:18 Operation Date: 12/05/22 13:50 Proposed Procedures p Cystoscopy left retrograde ureteroscopy laser and stent.(Left) - Ryder Mata MD Familial anesthetic complications: none Was Beta Cristobal taken within 24 hours: N/A Was Clonidine taken within 24 hours: N/A Last intake: Intake Last Liquid Date 12/05/22 Last Liquid Time 06:00 Last Solid Date 12/04/22 Last Solid Time 17:00 Social Alcohol and Tobacco Exam alert, oriented x 3 and regular rate & rhythm Airway Submandibular: within normal limits Cervical ROM: within normal limits Mallampati: Class II Dentition: full Pulmonary Chronic Obstructive Pulmonary Disease CV/HEM Alpha-gal kidney stones Neuropsych Anxiety and Depression Anesthetic Plan ASA status: 2 Anesthesia: General Medications/Allergies Home Medications Medication Instructions Recorded Confirmed Last Taken Type hydroxyzine HCl 25 mg tablet 25 mg PO Q6H PRN itching #20 tabs 07/22/20 12/04/22 Unknown Rx buspirone 10 mg tablet 10 mg PO TID PRN Anxiety 05/01/21 12/04/22 Unknown History diphenhydramine HCl 25 mg capsule 25 - 50 mg PO TID PRN Allergy 12/04/22 12/04/22 Unknown History (Benadryl) Symptoms famotidine 20 mg tablet (Pepcid) 20 mg PO DAILY PRN Heartburn 12/04/22 12/04/22 Unknown History ibuprofen 200 mg tablet 600 mg PO Q6H PRN Pain 12/04/22 12/04/22 Unknown History meloxicam 7.5 mg tablet 7.5 mg PO BEDTIME 12/04/22 12/04/22 2 Days Ago History ~12/02/22 ondansetron 4 mg disintegrating 4 mg PO BID PRN Nausea And Vomiting 12/04/22 12/04/22 12/04/22 07:00 History tablet Allergies Allergy/AdvReac Type Severity Reaction Status Date / Time Alpha-Gal Allergy Unknown Verified 12/04/22 13:09 (Pifsqdfvk-Xvkrd-4,3-Gala beef derived (bovine) Allergy ALGY-Hives Verified 07/17/22 12:49 gelatin Allergy ALGY-Hives Verified 07/17/22 12:49 pork derived (porcine) Allergy ALGY-Hives Verified 07/17/22 12:49 gel capsules Allergy ALGY-Hives Uncoded 07/17/22 12:49 Current Medications Generic Name Dose Route Start Last Admin Trade Name Freq PRN Reason Stop Dose Admin Diphenhydramine HCl 25 mg 12/05/22 08:59 12/05/22 09:31 Diphenhydramine 50 Mg/Ml Sdv 1ml IVP 25 mg Q8H PRN Administration ITCHING Sodium Chloride 1,000 mls @ 150 mls/hr 12/04/22 15:53 12/05/22 10:22 Sodium Chloride 0.9% IV 150 mls/hr .Q6H40M JASPER Administration Ceftriaxone Sodium 1,000 mg/ 50 mls @ 100 mls/hr 12/04/22 17:00 12/05/22 05:52 Sodium Chloride IV Infused Q12H JASPER Infusion Protocol Sodium Chloride 1,000 mls @ 30 mls/hr 12/05/22 13:15 12/05/22 13:25 Sodium Chloride 0.9% IV 12/06/22 13:14 30 mls/hr .Q24H JASPER Administration Ketorolac Tromethamine 15 mg 12/04/22 15:53 12/04/22 16:30 Ketorolac 30 Mg/Ml Inj IVP 12/09/22 15:52 15 mg Q6H PRN Administration MODERATE PAIN (BREAKTHROUGH) Morphine Sulfate 4 mg 12/04/22 15:53 12/05/22 04:09 Morphine 4 Mg/Ml Sdv 1 Ml IVP 4 mg Q2H PRN Administration SEVERE PAIN Ondansetron HCl 4 mg 12/04/22 15:53 12/04/22 16:28 Ondansetron 2 Mg/Ml Sdv 2 Ml IVP 4 mg Q6H PRN Administration NAUSEA AND VOMITING PFSH Anesthesia Medical History Acute left flank pain ASCUS with positive high risk HPV cervical Kidney stones Pyelonephritis Surgical History H/O lithotripsy (Unknown) x 3 Hx of foot surgery (Unknown) x 2 Hx of oral surgery (Unknown) Family History Mother Thyroid disease Thyroid cancer Denies family history of Colon cancer Ovarian cancer Diabetes Clotting disorder Hyperlipidemia Breast cancer Anesthesia complication Bleeding disorder Hypertension Uterine cancer Stroke Social History Smoking and tobacco status: current every day smoker cigarettes Packs smoked per day: 1 Alcohol intake: current Alcohol intake frequency: 3 or more drinks per day Alcohol type: hard liquor Substance/Drug Use: never Data Anesthesia 12/04/22 09:49 12/05/22 03:49 Short CBC 12/04/22 Range/Units 09:49 WBC 4.1 (4.0-10.0) 10^3/uL Hgb 15.5 H (11.5-15.3) g/dL Hct 45.3 (37.0-47.0) % MCV 102.5 H (81-99) fl Plt Count 303 (130-400) 10^3/cmm Neut % (Auto) 61.4 % Neut # (Auto) 2.54 (1.8-7.7) 10^3/uL BMP 12/04/22 12/05/22 09:49 03:49 Sodium 138 138 Potassium 3.7 3.5 Chloride 101 106 Carbon Dioxide 23 22 BUN 8 9 Creatinine 0.6 0.5 Glucose 69 65 Calcium 9.5 7.8 L Liver Function 12/04/22 Range/Units 09:49 Total Bilirubin 0.8 (0.15-1.2) mg/dL AST 20 (0-32) U/L ALT 17 (0-33) U/L Alkaline Phosphatase 72 (35-105) U/L Albumin 5.0 (3.5-5.2) g/dL Urine 12/04/22 Range/Units 09:40 Urine Color Dark yellow (Yellow) Urine Appearance Sl hazy A (CLEAR) Urine pH 6 (5-7) Ur Specific [place] 1.025 (1.005-1.030) Urine Protein Neg (Negative) Urine Glucose (UA) Norm (Normal) Urine Ketones 1+ H (Negative) Urine Nitrate Negative (Negative) Urine Bilirubin Neg (Negative) Ur Leukocyte Esterase Negative (Negative) Urine RBC Rare (0-2) /hpf Urine WBC 10-15 H (0-5) /hpf Cardiac Studies: No Data to Display
[2022-12-05] MEDS: diphenhydrAMINE 50 mg/mL SDV 1mL 12.5 MG IVP (13:49)
[2022-12-05] MEDS: ondansetron 2 mg/ML SDV 2 mL 4 MG IVP ×2 (13:49→16:45)
[2022-12-05] MEDS: HYDROmorphone 1 mg/mL INJ 1 mL 0.5 MG IVP ×2 (13:50→17:03)
--- NOTE | 2022-12-05 14:16 | PM.OP ---
Operative Report Date of procedure: December 05, 2022 Pre-op diagnosis: 1. Chronically obstructing impacted left UPJ stone with severe hydronephrosis Post-op diagnosis: 1. Chronically obstructing impacted left UPJ stone with severe hydronephrosis Procedure done: 1. Cystoscopy, LEFT: Retrograde ureteropyelogram 2. LEFT: Ureteroscopy, laser lithotripsy, stent (7 Cameroonian by 28 cm double-pigtail without string) Implants: Left ureteral stent Surgeon: Esperanza Estimated blood loss: Minimal Urine output: Not measured Complications: None Findings: Anesthesia: General Condition: Stable Disposition: PACU Intraoperative findings: Large stone. Impacted at the UPJ. Completely fragmented. Stent left indwelling Brief History: Nilsa is a very pleasant 37-year-old white female with a history of recurrent stones requiring multiple procedures historically. She was admitted to the hospital through the emergency department yesterday for evidence of an chronically obstructing large left impacted ureteral stone at the UPJ with severe hydronephrosis with some renal atrophy. Ultimately elected to proceed with endoscopy with hopes of completion lithotripsy via laser approach but with preparation for simple stenting for drainage and passive dilation of the ureter. Also reviewed antegrade access potentially required if safe retrograde access could not be obtained Procedure: After routine preoperative evaluation examination and obtaining of informed consent she was taken to the operating suite on 12/05/2022 where general anesthesia was administered without difficulty after appropriate timeout was performed, SCDs confirmed to be functioning, preoperative antibiotics administered, beta-nilda protocol confirmed. Prepped and draped in the usual sterile fashion in dorsolithotomy position pain careful attention to avoiding pressure points. 21 Cam[place]onian cystoscope with 30 degree lens was introduced into urethra meatus and advanced into the bladder without difficulty. Bladder was systematically examined. No gross abnormalities were identified. No stones. 8 Cam[place]onian cone-tip catheter was intubated into the left ureteral orifice for left retrograde ureteropyelogram demonstrating: Normal course and caliber of the left ureter up until the stone which was clearly demonstrated the UPJ. There was little contrast that could bypass the stone. Some did get by and showed the expected very dilated collecting system. Flexible tip guidewire was then advanced up the left ureter but could not be easily manipulated past the stone. An open-ended ureteral catheter was then advanced to just below the stone and the guidewire was removed and a zip wire/guidewire was passed up the catheter and thankfully went easily by the stone. The catheter was manipulated up the guidewire easily bypassing the stone and then the wire was exchanged for a routine flexible tip guidewire. The catheter was removed. A second guidewire was then passed and it is well easily passed the stone. The distal ureter was then dilated with a 15 Cameroonian 4 cm balloon. The first wire was secured to the drapes as a safety wire the second was used as a working wire. A 38 cm ureteral access sheath was advanced over the second wire to just below the level of the stone. 7 Cameroonian offset semirigid ureteroscope was advanced over the working wire through the sheath but could not get an ideal angle on the stone which was easily identified as an impacted stone passed that appeared to be quite adherent to the wall. That reason it was exchanged for the flexible ureteroscope. This allowed easy access to the stone and the stone was fragmented with a 365 ?m thulium superpulse laser fiber. Stone was very adherent to the sidewalls of the ureter. Essentially the inner portion of the stone was cored out with the laser and eventually breaking through to the dilated renal pelvis and then the pieces adherent to the wall were individually lasered and peeled off the wall until the impaction site was completely clear. Multiple larger pieces remained in the renal pelvis and several of the calyces and these were identified with the flexible scope and fragmented completely. All calyces were carefully inspected and I could find no residual fragments that were considered large. A large amount of the sand and debris which had been originally fragmented had washed around the scope through the sheath and was sent for pathologic evaluation. After confirmation of no severe bleeding, no large remaining pieces the sheath was pushed back onto the hub of the scope and the ureter was carefully inspected as the scope was removed. As expected the impaction site was very inflamed and with some appearance of scarring. No of the ureter was fine. The cystoscope was then backloaded over the guidewire and a 7 Cam[place]onian by 28 cm double-pigtail stent was advanced over the guidewire through the cystoscope into appropriate position as confirmed via fluoroscopy and cystoscopy. Stent was confirmed to be draining and the procedure was completed. There were no stone fragments in the bladder. She tolerated the procedure well without complications and was awakened in the operating room and returned to the recovery room in stable condition. PLANS: 1. Anticipate discharge today from observation status 2. Follow-up roughly 2 weeks for KUB. We will need to make arrangements for stent removal or potentially relook ureteroscopy to confirm adequate healing.
[2022-12-05] MEDS: iohexol 300 mg/mL 50 mL Btl (OR ONLY) XX (14:38)
--- NOTE | 2022-12-05 15:21 | SUR.OPER ---
called and notified her of surgical progress.
--- NOTE | 2022-12-05 17:19 | ANE.PACU2 ---
Inpatient post-anesthesia follow up: Airway intact: Yes Vital signs: Temperature 98.1 F Pulse Rate 74 Respiratory Rate 13 Blood Pressure 117/73 Pulse Oximetry 94 Oxygen Delivery Me thod Room Air Oxygen Flow Rate 6 Fraction of Inspir ed Oxygen Hydration adequate: Yes Nausea and vomiting: No Pain level: 3 Mental status: Baseline
--- NOTE | 2022-12-06 15:45 | PC.NURSE ---
This Nurse called pt at 0730 12/06/22 and told the patient that she needed to come to the floor and poultry picker a strainer to strain her urine and collect stones per adria's post op requests. pt was discharged 12/05/22. patient answered call and said that she would come grab it and hung up durring education about why straining was needed. pt has not been seen on floor to poultry picker strainer thus far in shift.
--- NOTE | 2022-12-11 14:37 | PM.DCS ---
Discharge Providers Date of Admission: 12/04/22 13:39 Date of Discharge: December 11, 2022 Attending Provider at Admission: Ryder Mata MD Attending Provider at Discharge: Ryder Mata MD Diagnoses at Discharge Discharge Diagnosis (1) Left ureteral calculus: Status: Resolved (2) Hydronephrosis, left: Status: Acute (3) Renal atrophy, left: Status: Acute Reason for Visit Reason for Visit: urogenital Brief History: Presented to the emergency department on 12/04/2022 with bilateral flank pain reportedly right greater than sign left. CT scan demonstrated a large roughly 1 cm stone that appeared to be impacted at the left UPJ. Severe hydronephrosis was noted with some degree of renal atrophy. Admitted for symptomatic control which was poorly obtained in the emergency department and for evaluation for treatment options. Hospital Course Hospital Course Due to the clinical picture of impaction supported by radiographic findings ultimately we elected to approach the stone endoscopically. Her pain was not well controlled enough to be able to be managed at home and based on her history as well as the radiographic findings it was felt that the stone had been likely there for quite some time and would be impacted. On 12/05/2022 she underwent cystoscopy, LEFT RETROGRADE, ureteroscopy, laser lithotripsy and stent. As expected the stone was found to be impacted it was a difficult task to freed up from its ureteral adhesions but ultimately utilizing laser lithotripsy the stone was completely fragmented. The area of impaction was quite inflamed and a stent was left indwelling. She recovered well and was discharged on the evening of her surgical intervention further convalescence at home. We discussed the possibility of relook ureteroscopy versus stent removal in clinic and no definitive decision was made Physical Exam Narrative: Alert and oriented no acute distress. Tolerating the stent reasonably well. No labored respiration or wheezing. Regular rate rhythm Marked improvement in her overall appearance based on resolution of renal colicky type pain. Moving all extremities. Neurologically intact. Discharge Data Studies Completed and Pending Completed Studies During Hospitalization Category Date Time Status CT kidney stone [id number] Stat Cat Scan 12/04/22 09:57 Completed Pathology: Surgical [PTH] Routine Pth 12/06/22 07:39 Completed Pending at discharge Category Date Time Status Stone Analysis Routine Lab 12/06/22 07:40 Received Radiology Impressions Abdomen/Pelvis CT 12/04/22 09:57 IMPRESSION: 1. Moderate to severe LEFT hydronephrosis secondary to a large 10 x 8 mm calcification at the UP junction. 2. Additional bilateral nonobstructing renal calcifications. Normal appendix. C-Arm Fluoroscopy 12/05/22 00:00 IMPRESSION: Left retrograde ureteropyelogram demonstrating calculus and hydronephrosis. Left ureteral stent deployed. Laboratory Results WBC 4.1 10^3/uL (4.0-10.0) 12/04/22 09:49 RBC 4.42 10^6/uL (4.1-5.3) 12/04/22 09:49 Hgb 15.5 g/dL (11.5-15.3) H 12/04/22 09:49 Hct 45.3 % (37.0-47.0) 12/04/22 09:49 MCV 102.5 fl (81-99) H 12/04/22 09:49 MCH 35.1 pg (28.0-34.0) H 12/04/22 09:49 MCHC 34.2 g/dL (30.0-36.0) 12/04/22 09:49 RDW 11.9 % (12.1-15.1) L 12/04/22 09:49 Plt Count 303 10^3/cmm (130-400) 12/04/22 09:49 MPV 9.7 fL (7.4-10.4) 12/04/22 09:49 Neut % (Auto) 61.4 % 12/04/22 09:49 Lymph % (Auto) 27.5 % 12/04/22 09:49 [place] % (Auto) 8.7 % 12/04/22 09:49 Eos % (Auto) 1.7 % 12/04/22 09:49 Baso % (Auto) 0.7 % 12/04/22 09:49 Neut # (Auto) 2.54 10^3/uL (1.8-7.7) 12/04/22 09:49 Lymph # (Auto) 1.1 10^3/uL (0.8-4.8) 12/04/22 09:49 [place] # (Auto) 0.4 10^3/uL (0.2-0.9) 12/04/22 09:49 Eos # (Auto) 0.1 10^3/uL (0.0-0.8) 12/04/22 09:49 Baso # (Auto) 0.0 10^3/uL (0.0-0.1) 12/04/22 09:49 Nucleated RBC % (auto) 0 % 12/04/22 09:49 Nucleated RBCs # 0.0 /100WBC 12/04/22 09:49 Sodium 138 mmol/L (136-145) 12/05/22 03:49 Potassium 3.5 mmol/L (3.5-5.1) 12/05/22 03:49 Chloride 106 mmol/L (98-107) 12/05/22 03:49 Carbon Dioxide 22 mmol/L (22-29) 12/05/22 03:49 Anion Gap 13.5 (5-19) 12/05/22 03:49 BUN 9 mg/dL (6-20) 12/05/22 03:49 Creatinine 0.5 mg/dL (0.5-0.9) 12/05/22 03:49 GFR Calculation 138.8 mL/min (90-130) H 12/05/22 03:49 Glucose 65 mg/dL (65-115) 12/05/22 03:49 Calculated Osmolality 283 mOsm/kg (285-295) L 12/05/22 03:49 Calcium 7.8 mg/dL (8.5-10.5) L 12/05/22 03:49 Total Bilirubin 0.8 mg/dL (0.15-1.2) 12/04/22 09:49 AST 20 U/L (0-32) 12/04/22 09:49 ALT 17 U/L (0-33) 12/04/22 09:49 Alkaline Phosphatase 72 U/L (35-105) 12/04/22 09:49 Total Protein 7.7 g/dL (6.6-8.7) 12/04/22 09:49 Albumin 5.0 g/dL (3.5-5.2) 12/04/22 09:49 Globulin 2.7 g/dL (1.3-4.6) 12/04/22 09:49 Lipase 12 U/L (13-60) L 12/04/22 09:49 HCG, Qual Negative (Negative) 12/04/22 09:49 Urine Color Dark yellow (Yellow) 12/04/22 09:40 Urine Appearance Sl hazy (CLEAR) A 12/04/22 09:40 Urine pH 6 (5-7) 12/04/22 09:40 Ur Specific [place] 1.025 (1.005-1.030) 12/04/22 09:40 Urine Protein Neg (Negative) 12/04/22 09:40 Urine Glucose (UA) Norm (Normal) 12/04/22 09:40 Urine Ketones 1+ (Negative) H 12/04/22 09:40 Urine Blood Neg (Negative) 12/04/22 09:40 Urine Nitrate Negative (Negative) 12/04/22 09:40 Urine Bilirubin Neg (Negative) 12/04/22 09:40 Urine Urobilinogen Norm mg/dL (Negative) 12/04/22 09:40 Ur Leukocyte Esterase Negative (Negative) 12/04/22 09:40 Urine RBC Rare /hpf (0-2) 12/04/22 09:40 Urine WBC 10-15 /hpf (0-5) H 12/04/22 09:40 Ur Squamous Epith Cells 10-15 /hpf (0-5) H 12/04/22 09:40 Amorphous Sediment Not Reportable 12/04/22 09:40 Urine Bacteria Trace /hpf (NONE) 12/04/22 09:40 Urine Mucus Trace /hpf 12/04/22 09:40 Vitals Last Vital Signs Temp 98.1 F 12/05/22 18:04 Pulse 76 12/05/22 18:04 Resp 16 12/05/22 18:04 BP 116/78 12/05/22 18:04 Pulse Ox 96 12/05/22 18:04 O2 Del Method Room Air 12/05/22 17:46 O2 Flow Rate 6 12/05/22 16:20 Discharge Plan Discharge Patient Disposition: Home Condition: Stable Prescriptions: New Percocet 5-325 mg tablet 1 tab PO Q6H Qty: 16 0RF cefuroxime axetil 500 mg tablet 500 mg PO BID 10 Days Qty: 20 0RF Continued buspirone 10 mg tablet 10 mg PO TID PRN (Reason: Anxiety) Nexplanon 68 mg implant 1 implant subdermal ONCE Qty: 1 0RF hydroxyzine HCl 25 mg tablet 25 mg PO Q6H PRN (Reason: itching) Qty: 20 0RF meloxicam 7.5 mg tablet 7.5 mg PO BEDTIME Benadryl 25 mg Capsule 25 - 50 mg PO TID PRN (Reason: Allergy Symptoms) ibuprofen 200 mg Tablet 600 mg PO Q6H PRN (Reason: Pain) ondansetron 4 mg tablet,disintegrating 4 mg PO BID PRN (Reason: Nausea And Vomiting) Pepcid 20 mg tablet 20 mg PO DAILY PRN (Reason: Heartburn) Discharge Orders: Discharge Order (Routine); Ordered 12/05/22 Ordered By: Ryder Mata Referrals: Ryder Mata MD [Physician] - 12/18/22 ([facility] his office will call with appointment) Discharge Diet: Usual diet Discharge Activity: Increase activity as tolerated Patient Instructions: Cefuroxime (By mouth), Oxycodone/Acetaminophen (By mouth), Cystoscopy (GEN), Opioid Safety Activity Restrictions/Additional Instructions: 1. The procedure went very well. Stone was severely obstructing and impacted. His completion of the procedure I could no longer see any obvious large pieces. The remaining pieces are small enough to be able to pass. 2. The stent will need to stay in for a while probably at least a month for adequate healing. 3. We will need to make arrangements for when to take the stent out and how to do that whether I can do it here [facility] or [place] with urology etc. 4. I will see you back on that last week of November to facilitate making those plans. Discharge Attestations Time Spent in Discharge Care*: less than 30 min Quality Metrics Clinical Quality Measures [ No reported AMI, CVA or VTE this stay] Coding Level of Care Code Acute Code for Chg Fwd Diagnoses Left ureteral calculus N20.1 Hydronephrosis, left N13.30 Renal atrophy, left N26.1
[2022-12-12 11:00] LABS: Stone Source LEFT URETERAL STONE
== END 2022-12-05 18:23 | disposition home or self-care (01) | DRG 661 ==
LOC: ER 13:38 → MEDSURG 15:53
PROVIDERS: Physician Assistant; Admitting Provider Urology; Emergency Provider Family Medicine; Visit Provider Urology
PROC: 0TJB8ZZ Inspection of Bladder, Via Natural or Artificial Opening Endoscopic (ICD-10-PCS; CPT 52000; principal; 2022-12-05 13:30)
PROC: 0T778DZ Dilation of Left Ureter with Intraluminal Device, Via Natural or Artificial Opening Endoscopic (ICD-10-PCS; CPT 74420; 2022-12-05 13:30)
PROC: 0TJ98ZZ Inspection of Ureter, Via Natural or Artificial Opening Endoscopic (ICD-10-PCS; CPT 52351; 2022-12-05 13:30)
PROC: 0T778DZ Dilation of Left Ureter with Intraluminal Device, Via Natural or Artificial Opening Endoscopic (ICD-10-PCS; 2022-12-05 13:30)
PROC: 0T778DZ Dilation of Left Ureter with Intraluminal Device, Via Natural or Artificial Opening Endoscopic (ICD-10-PCS; CPT 50605; 2022-12-05 13:30)
DX: N13.2 Hydronephrosis with renal and ureteral calculous obstruction (principal); Z87.442 Personal history of urinary calculi; F17.210 Nicotine dependence, cigarettes, uncomplicated; F10.10 Alcohol abuse, uncomplicated; N26.1 Atrophy of kidney (terminal)
CPT/HCPCS: 36415; 74176; 76000; 80048; 80053; 81001; 82365; 83690; 84703; 85025; 87086; 88300; 96374; 96375; 99285; J0696; J1100; J1170; J1200; J1885; J2250; J2270; J2405; J2704; J2765; J3010; J7030

== ENCOUNTER 2022-12-12 15:03 | Emergency (ER) | payer OTHER, SELFPAY ==
[2022-12-12 15:15] VITALS: BP 138/82; PULSE 90; RESP 18; TEMP 36.4; O2SAT 100; BMI 28.2
[2022-12-12 16:10] LABS: HCG, Serum Qual Negative (Negative)
--- NOTE | 2022-12-12 16:31 | ED_ITS ---
HPI - Female Genitourinary General: Chief complaint: Urogenital-Female Stated complaint: sent by dr reyes for pain lt side Time Seen by Provider: 12/12/22 16:14 History of Present Illness: 37-year-old lady presenting due to flank pain. On 12/05 she underwent ureteral stent placement and initially was doing well however developed acute onset pain without no specific provoking event and was proved to the ED for additional evaluation. Moderate to severe intensity. Burning. No other specific changes in health, exacerbating, or alleviating factors identified. Onset (ago): hour(s) Location of symptoms: flank Severity: severe Quality of pain: burning Exacerbating factors: none Relieving factors: none Review of Systems General: Reports: 10 or more systems reviewed and unremarkable except in HPI and below PFSH ED PFSH: Medical History Acute left flank pain ASCUS with positive high risk HPV cervical Kidney stones Pyelonephritis Urolithiasis Surgical History H/O lithotripsy (Unknown) x 3 Hx of foot surgery (Unknown) x 2 Hx of oral surgery (Unknown) Family History Mother Thyroid disease Thyroid cancer Denies family history of Colon cancer Ovarian cancer Diabetes Clotting disorder Hyperlipidemia Breast cancer Anesthesia complication Bleeding disorder Hypertension Uterine cancer Stroke Social History Smoking and tobacco status: current every day smoker cigarettes Packs smoked per day: 1 Alcohol intake: current Alcohol intake frequency: 3 or more drinks per day Alcohol type: hard liquor Substance/Drug Use: never Marital status: Current occupational status: unemployed Physical Exam Const: COMMON NORMALS: alert GENERAL APPEARANCE: cooperative and well developed HENMT: COMMON NORMALS: normocephalic and atraumatic HEAD & SCALP: normocephalic and atraumatic Eye: COMMON NORMALS: conjunctivae normal CONJUNCTIVA: Yes conjunctivae normal SCLERA: sclerae normal Neck/C-Spine: COMMON NORMALS: supple GENERAL: Yes trachea midline Resp: COMMON NORMALS: clear to auscultation bilaterally EFFORT & I NSPECTION: Yes able to speak in complete sentences AUSCULTATION: clear to auscultation bilaterally Cardio: COMMON NORMALS: regular rate and regular rhythm RATE: regular rate RHYTHM: regular rhythm GI: COMMON NORMALS: Soft to palpation PALPATION: Yes Soft to palpation and No Tenderness to palpation present (GI) : COMMON NORMALS: Yes no CVA tenderness BLADDER/KIDNEY EXAM: Yes no CVA tenderness Back/Pelvis: COMMON NORMALS: no CVA tenderness Extremity: GENERAL: Yes normal exam except as noted and No edema Neuro: COMMON NORMALS: moves all extremities SENSORIUM/ORIENTATION: Yes alert and No Orientation impaired Psych: COMMON NORMALS: mental status grossly normal and Normal thought process present THOUGHT PROCESS: Normal thought process present Course Vital Signs: Vital signs: Vital Signs Temperature 97.6 F 12/12/22 15:15 Pulse Rate 70 12/12/22 19:05 Respiratory Rate 18 12/12/22 19:05 Blood Pressure 127/79 12/12/22 19:05 Pulse Oximetry 99 12/12/22 19:05 Oxygen Delivery Me thod Room Air 12/12/22 18:20 MDM - Female Medical Decision Making 37-year-old lady presenting with burning flank pain post stent placement. Patient is nontoxic. She is visibly uncomfortable though. No evidence of acute surgical abdomen. Labs notable for no leukocytosis, normal hemoglobin, thrombocytosis which is only minimal. Metabolic panel with perhaps mild dehydration. Renal function is preserved. Urinalysis does have hematuria and pyuria. X-ray reveals appropriate positioned stent, moderate hydronephrosis identified without clear evidence of stent failure. Patient treated with analgesia and antiemetic as well as given a dose of antibiotics. Pain controlled with the symptoms were discussed with urology, plan to switch patient antibiotics and continue outpatient management with follow-up hand surgery precautions. The results of ED evaluation were discussed with the patient including prescriptions and/or symptomatic cares (if applicable) including appropriate and responsible use, followup plan, and return precautions. The patient verbalized understanding and felt safe for discharge. Medical Records I reviewed the patient's medical records. Lab Data I reviewed the patient's lab results. 12/12/22 15:22 12/12/22 15:22 Radiology Impressions KUB X-Ray 12/12/22 16:55 IMPRESSION: Left double-J ureteral stent, as noted above. Renal Ultrasound 12/12/22 16:55 IMPRESSION: 1. Left double-J ureteral stent seen. Moderate left hydronephrosis. Echogenic left renal pyramids with relative mild renal cortical thinning. This may be related to inflammatory changes from recent procedure or pyelonephritis. 2. Right kidney upper pole 0.2 x 0.2 cm echogenic focus/calculus. Laboratory Results WBC 6.5 10^3/uL (4.0-10.0) 12/12/22 15: RBC 4.16 10^6/uL (4.1-5.3) 12/12/22 15:22 Hgb 14.5 g/dL (11.5-15.3) 12/12/22 15:22 Hct 43.4 % (37.0-47.0) 12/12/22 15: MCV 104.3 fl (81-99) H 12/12/22 15: MCH 34.9 pg (28.0-34.0) H 12/12/22 15: MCHC 33.4 g/dL (30.0-36.0) 12/12/22 15: RDW 11.8 % (12.1-15.1) L 12/12/22 15:22 Plt Count 401 10^3/cmm (130-400) H 12/12/22 15: MPV 10.0 fL (7.4-10.4) 12/12/22 15: Neut % (Auto) 61.0 % 12/12/22 15: Lymph % (Auto) 25.4 % 12/12/22 15:22 [place] % (Auto) 9.9 % 12/12/22 15: Eos % (Auto) 2.8 % 12/12/22 15: Baso % (Auto) 0.6 % 12/12/22 15: Neut # (Auto) 3.93 10^3/uL (1.8-7.7) 12/12/22 15: Lymph # (Auto) 1.6 10^3/uL (0.8-4.8) 12/12/22 15:22 [place] # (Auto) 0.6 10^3/uL (0.2-0.9) 12/12/22 15:22 Eos # (Auto) 0.2 10^3/uL (0.0-0.8) 12/12/22 15:22 Baso # (Auto) 0.0 10^3/uL (0.0-0.1) 12/12/22 15:22 Nucleated RBC % (auto) 0 % 12/12/22 15:22 Nucleated RBCs # 0.0 /100WBC 12/12/22 15:22 Sodium 135 mmol/L (136-145) L 12/12/22 15:22 Potassium 4.3 mmol/L (3.5-5.1) 12/12/22 15:22 Chloride 97 mmol/L (98-107) L 12/12/22 15:22 Carbon Dioxide 24 mmol/L (22-29) 12/12/22 15:22 Anion Gap 18.3 (5-19) 12/12/22 15:22 BUN 13 mg/dL (6-20) 12/12/22 15:22 Creatinine 0.7 mg/dL (0.5-0.9) 12/12/22 15:22 GFR Calculation 94.2 mL/min (90-130) 12/12/22 15:22 Glucose 86 mg/dL (65-115) 12/12/22 15:22 Calculated Osmolality 279 mOsm/kg (285-295) L 12/12/22 15:22 Lactic Acid 0.8 mmol/L (0.5-2.2) 12/12/22 15:22 Calcium 9.7 mg/dL (8.5-10.5) 12/12/22 15:22 Total Bilirubin 0.4 mg/dL (0.15-1.2) 12/12/22 15:22 AST 13 U/L (0-32) 12/12/22 15:22 ALT 16 U/L (0-33) 12/12/22 15:22 Alkaline Phosphatase 56 U/L (35-105) 12/12/22 15:22 Total Protein 7.1 g/dL (6.6-8.7) 12/12/22 15:22 Albumin 4.8 g/dL (3.5-5.2) 12/12/22 15:22 Globulin 2.3 g/dL (1.3-4.6) 12/12/22 15:22 HCG, Qual Negative (Negative) 12/12/22 15:22 Urine Color Yellow (Yellow) 12/12/22 15:15 Urine Appearance Cloudy (CLEAR) A 12/12/22 15:15 Urine pH 6.5 (5-7) 12/12/22 15:15 Ur Specific [place] 1.020 (1.005-1.030) 12/12/22 15:15 Urine Protein 2+ (Negative) H 12/12/22 15:15 Urine Glucose (UA) Norm (Normal) 12/12/22 15:15 Urine Ketones Negative (Negative) 12/12/22 15:15 Urine Blood 3+ (Negative) H 12/12/22 15:15 Urine Nitrate Negative (Negative) 12/12/22 15:15 Urine Bilirubin Neg (Negative) 12/12/22 15:15 Urine Urobilinogen 1 mg/dL (Negative) H 12/12/22 15:15 Ur Leukocyte Esterase 2+ (Negative) H 12/12/22 15:15 Urine RBC 80-100 /hpf (0-2) H 12/12/22 15:15 Urine WBC 80-100 /hpf (0-5) H 12/12/22 15:15 Ur Squamous Epith Cells 5-10 /hpf (0-5) H 12/12/22 15:15 Calcium Oxalate Crystal 10-15 /hpf H 12/12/22 15:15 Amorphous Sediment Trace /hpf 12/12/22 15:15 Urine Bacteria 2+ /hpf (NONE) H 12/12/22 15:15 Urine Mucus Trace /hpf 12/12/22 15:15 Discharge Plan Discharge Patient Disposition: Home Clinical Impression: Acute flank pain, Ureteral stent present Condition: Stable Prescriptions: New ondansetron 4 mg tablet,disintegrating 4 mg PO Q8H PRN (Reason: nausea and vomiting) Qty: 15 0RF oxycodone 5 mg tablet 5 mg PO Q4H PRN (Reason: pain) Qty: 20 0RF No Action buspirone 10 mg tablet 10 mg PO TID PRN (Reason: Anxiety) Nexplanon 68 mg implant 1 implant subdermal ONCE Qty: 1 0RF ciprofloxacin HCl 500 mg tablet 500 mg PO BID Qty: 20 0RF hydroxyzine HCl 25 mg tablet 25 mg PO Q6H PRN (Reason: itching) Qty: 20 0RF diphenhydramine HCl [Benadryl] 25 mg Capsule 25 - 50 mg PO TID PRN (Reason: Allergy Symptoms) ibuprofen 200 mg Tablet 600 mg PO Q6H PRN (Reason: Pain) famotidine [Pepcid] 20 mg tablet 20 mg PO DAILY PRN (Reason: Heartburn) Discharge Orders: Discharge ED (Routine); Ordered 12/12/22 Ordered By: Praneeth Oakley Referrals: Derek Reyes MD [Primary Care Provider] - Discharge Diet: Usual diet Discharge Activity: Limit activity as instructed Patient Instructions: Flank Pain (ED), Ureteral Stent Placement (DC), Opioid Safety Activity Restrictions/Additional Instructions: Thank you for visiting the emergency department. You were seen and evaluated for flank pain in the postoperative setting. The exact cause your symptoms is unclear. As discussed we will change her antibiotic. I will also prescribe additional doses of analgesia. Please follow all previously given instructions from Dr. Mata. Please follow-up with Dr. Mata. Please call his office in the morning. Return for worsening symptoms, fevers, changes in urine output, or anything else that you are concerned about and feel needs emergency department evaluation. Coding Level of Care Code ED Community Relations Manager for [facility]
[2022-12-12 16:37] VITALS: BP 118/91; PULSE 82; RESP 18; O2SAT 98
[2022-12-12 16:43] LABS: Basophils % 0.6 %; Eosinophils # 0.2 10^3/uL (0.0-0.8); Eosinophils % 2.8 %; Hematocrit 43.4 % (37.0-47.0); Hemoglobin 14.5 g/dL (11.5-15.3); Lymphocytes # 1.6 10^3/uL (0.8-4.8); Lymphocytes % 25.4 %; Mean Corpuscular HGB Conc 33.4 g/dL (30.0-36.0); Mean Corpuscular Hemoglobin 34.9 pg (28.0-34.0); Mean Corpuscular Volume 104.3 fl (81-99); Monocytes # 0.6 10^3/uL (0.2-0.9); Monocytes % 9.9 %; Neutrophils # 3.93 10^3/uL (1.8-7.7); Nucleated Red Blood Cells % 0 %; Platelet Count 401 10^3/cmm (130-400); Red Blood Count 4.16 10^6/uL (4.1-5.3); Red Cell Distribution Width 11.8 % (12.1-15.1); White Blood Count 6.5 10^3/uL (4.0-10.0)
[2022-12-12 16:53] LABS: Alanine Aminotransferase 16 U/L (0-33); Albumin Level 4.8 g/dL (3.5-5.2); Alkaline Phosphatase 56 U/L (35-105); Anion Gap 18.3 (5-19); Aspartate Amino Transferase 13 U/L (0-32); Blood Urea Nitrogen 13 mg/dL (6-20); Calcium 9.7 mg/dL (8.5-10.5); Carbon Dioxide 24 mmol/L (22-29); Chloride 97 mmol/L (98-107); Globulin 2.3 g/dL (1.3-4.6); Glomerular Filtration Rate 94.2 mL/min (90-130); Glucose 86 mg/dL (65-115); Lactic Sepsis W/Reflex 0.8 mmol/L (0.5-2.2); Osmolality Calculated 279 mOsm/kg (285-295); Potassium 4.3 mmol/L (3.5-5.1); Sodium 135 mmol/L (136-145); Total Bilirubin 0.4 mg/dL (0.15-1.2); Total Protein 7.1 g/dL (6.6-8.7)
[2022-12-12 16:55] LABS: Urine Appearance Cloudy (CLEAR); Urine Color Yellow (Yellow)
--- NOTE | 2022-12-12 16:55 | XRR_ITS ---
PROCEDURE INFORMATION: Exam: XR Abdomen Exam date and time: 12/12/2022 5:00 PM Age: 37 years old Clinical indication: Abdominal pain; Flank; Left; Additional info: Flank pain post ureteral stent TECHNIQUE: Imaging protocol: Radiologic exam of the abdomen. Views: Frontal supine view of the abdomen. 1 View. COMPARISON: CT kidney stone [id number] 12/04/2022 10:12 AM FINDINGS: Tubes, catheters and devices: Left double-J ureteral stent is seen. The upper pigtail loop is noted to be in the region of the left kidney upper pole. Recommend correlation with procedural history. Gastrointestinal tract: There is a non-obstructive bowel gas pattern. There is no abnormal dilatation of bowel loops. Mild to moderate constipation is seen. There is no pneumatosis or mass effect. There is no organomegaly. Intraperitoneal space: No definite free air on the supine view exam. Bones/joints: There are no acute osseous abnormalities noted. Soft tissues: The left kidney mid zone and lower pole small calculi seen on the CT are not well assessed on the abdominal radiograph, related to overlying bowel gas. The previously noted left renal pelvis calculus is no longer seen. XR/XR KUB [id number] IMPRESSION: Left double-J ureteral stent, as noted above.
--- NOTE | 2022-12-12 16:55 | USR_ITS ---
PROCEDURE INFORMATION: Exam: US Retroperitoneal; Complete; Kidneys and Bladder Exam date and time: 12/12/2022 5:27 PM Age: 37 years old Clinical indication: Abdominal pain; Prior surgery; Surgery date: 3-7 days post-operative; Surgery type: Post op stent placement in left kd; Additional info: Post stent, increased pain, eval hydro TECHNIQUE: Imaging protocol: Real-time ultrasound of the retroperitoneum with image documentation. Complete exam focused on the kidneys and bladder. COMPARISON: CT kidney stone [id number] 12/04/2022 10:12 AM FINDINGS: Right kidney: The right kidney measures 12.5 x 4.5 x 4.8 cm. The renal cortex appears normal in thickness with normal cortical medullary differentiation. Right kidney upper pole 0.2 x 0.2 cm echogenic focus/calculus is seen. No hydronephrosis or abnormal perinephric collection. Left kidney: The left kidney measures 11.9 x 6.1 x 5.7 cm. Echogenic renal pyramids are seen. Some relative left renal cortical thinning is seen. Moderate left hydronephrosis seen. Echogenic focus is seen in the right kidney upper pole region, consistent with the upper aspect of the right double-J ureteral stent. Other vasculature: The lower abdominal aorta, iliacs and inferior vena cava are not well seen due to bowel gas. Intraperitoneal space: No ascites noted. Urinary bladder: No bladder wall thickening or debris. The distal aspect of the left double-J ureteral stent is seen. The right ureteral jet is seen. US/US renal BI* [id number] IMPRESSION: 1. Left double-J ureteral stent seen. Moderate left hydronephrosis. Echogenic left renal pyramids with relative mild renal cortical thinning. This may be related to inflammatory changes from recent procedure or pyelonephritis. 2. Right kidney upper pole 0.2 x 0.2 cm echogenic focus/calculus.
[2022-12-12 16:56] LABS: Add Urine Microscopic? YES; Bilirubin Urine Neg (Negative); Blood Urine 3+ (Negative); Glucose Urine UA Norm (Normal); Ketones Urine Negative (Negative); Leukocyte Esterase Urine 2+ (Negative); Nitrate Urine Negative (Negative); Protein Urine 2+ (Negative); Urobilinogen Urine 1 mg/dL (Negative); pH Urine 6.5 (5-7)
--- NOTE | 2022-12-12 16:57 | PC.PHAR ---
pt states she dced her mobic 7.5mg daily filled 11/27/22 30d/s
[2022-12-12 17:19] LABS: Amorphous Sediment Urine TRACE /hpf; Bacteria Urine 2+ /hpf; Mucus Urine TRACE /hpf; RBC Urine 80-100 /hpf (0-2); WBC Urine 80-100 /hpf (0-5)
[2022-12-12 17:20] LABS: Add Urine Culture? Yes
[2022-12-12] MEDS: HYDROmorphone 1 mg/mL INJ 1 mL 0.5 MG IVP (17:34)
[2022-12-12 17:38] VITALS: BP 110/88; PULSE 84; RESP 20; O2SAT 99
[2022-12-12] MEDS: metoclopramide 5 mg/mL SDV 2 mL 10 MG IVP (18:19)
[2022-12-12 18:20] VITALS: BP 114/81; PULSE 74; RESP 18; O2SAT 97
[2022-12-12] MEDS: piperacillin-tazobactam 4.5 GM in sodium chloride 0.9% (plus) 50 ML IV (18:36)
[2022-12-12] MEDS: oxyCODONE 5 mg IR Tab/Cap 20 MG PO (19:04)
[2022-12-12 19:05] VITALS: BP 127/79; PULSE 70; RESP 18; O2SAT 99
== END 2022-12-12 19:05 | disposition home or self-care (01) ==
PROVIDERS: Emergency Provider Emergency Medicine; PCP Family Medicine Adult Medicine
DX: M54.50 Low back pain, unspecified (principal); Z98.890 Other specified postprocedural states; E87.6 Hypokalemia; R82.81 Pyuria; R31.9 Hematuria, unspecified; N13.30 Unspecified hydronephrosis
CPT/HCPCS: 36415; 74018; 76770; 80053; 81001; 83605; 84703; 85025; 87086; 96365; 96375; 99285; J1170; J2543; J2765

== ENCOUNTER 2022-12-19 08:43 | Outpatient (CLI) | payer OTHER, SELFPAY ==
--- NOTE | 2022-12-19 09:01 | XR_ITS ---
WS: [id number] ABDOMEN 1 VIEW(S) HISTORY: STONES COMPARISON: 12/12/2022 LEFT double-J ureteral stent remains in good position. No calcifications are noted along the course o f the stent. No renal calcifications. There are a few tiny crow like calcifications projected over the lower pole LEFT kidney. No bone abnormality. XR/XR KUB [id number] IMPRESSION: Satisfactory positioning of the LEFT double-J ureteral stent. No calcifications identified radiographically along the stent.
== END 2022-12-19 08:44 | disposition home or self-care (01) ==
LOC: RAD 08:44
PROVIDERS: PCP Family Medicine Adult Medicine; Visit Provider Urology
DX: N13.30 Unspecified hydronephrosis (principal); Z96.0 Presence of urogenital implants; N20.9 Urinary calculus, unspecified
CPT/HCPCS: 74018; 81003

== ENCOUNTER 2023-01-02 09:26 | Outpatient (CLI) | payer OTHER, SELFPAY ==
--- NOTE | 2023-01-02 09:38 | XR_ITS ---
WS: [id number] XR KUB [id number] REASON FOR EXAM: stones FINDINGS: Properly positioned left ureteral stent unchanged compared to 12/19/2022. Large UPJ calculus demonstrated on CT scan of 12/04/2022 is no longer identifiable. Small calculus ove rlying the lower pole of the left kidney congruent with CT scan 12/04/2022. No other significant abnormality. XR/XR KUB [id number] IMPRESSION: Left ureteral stent remains in proper position. Left intrarenal calculus. No other urinary tract calculi identified.
== END 2023-01-02 09:27 | disposition home or self-care (01) ==
PROVIDERS: PCP Family Medicine Adult Medicine; Visit Provider Urology
DX: N13.2 Hydronephrosis with renal and ureteral calculous obstruction (principal); Z96.0 Presence of urogenital implants
CPT/HCPCS: 74018

== ENCOUNTER → 2023-01-10 10:27 | Outpatient (BNVA) | payer OTHER, SELFPAY | PROVIDERS: PCP Family Medicine Adult Medicine; Visit Provider Family Medicine Adult Medicine | DX: Z91.018 Allergy to other foods (principal); F41.9 Anxiety disorder, unspecified; F32.A Depression, unspecified; J30.9 Allergic rhinitis, unspecified; R11.0 Nausea; N20.9 Urinary calculus, unspecified; Z96.0 Presence of urogenital implants; R87.610 Atypical squamous cells of undetermined significance on cytologic smear of cervix (ASC-US); R87.810 Cervical high risk human papillomavirus (HPV) DNA test positive | CPT/HCPCS: 84443; 86003; 86008 ==

== ENCOUNTER 2024-02-16 12:52 | Outpatient (CLI) | payer OTHER, SELFPAY ==
--- NOTE | 2024-02-16 13:18 | XRR_ITS ---
PROCEDURE INFORMATION: Exam: XR Abdomen Exam date and time: 02/16/2024 1:19 PM Age: 39 years old Clinical indication: Abdominal pain; Right; Patient HX: RT flank pain; HX kidney stones; Additional info: Kidney stone TECHNIQUE: Imaging protocol: Radiologic exam of the abdomen. Views: Frontal supine view of the abdomen. 1 View. COMPARISON: CR XR KUB [id number] 08/20/2023 2:14 PM FINDINGS: Gastrointestinal tract: Normal. No bowel dilation. Organs: A small calculus is again seen projecting over the lower pole of the left kidney. An even smaller calculus is seen slightly lower on the right possibly in the lower pole of the right kidney. This calcification was not evident on the prior KUB. Bones/joints: Unremarkable. XR/XR KUB [id number] IMPRESSION: Bilateral nephrolithiasis.
== END 2024-02-16 12:53 | disposition home or self-care (01) ==
PROVIDERS: PCP Family Medicine Adult Medicine; Visit Provider Emergency Medicine
DX: N20.0 Calculus of kidney (principal); R39.9 Unspecified symptoms and signs involving the genitourinary system
CPT/HCPCS: 74018; 81000

== ENCOUNTER 2024-07-08 01:58 | Emergency (ER) | payer OTHER, SELFPAY ==
[2024-07-08 02:07] VITALS: BP 136/94; PULSE 102; RESP 20; TEMP 36.6; O2SAT 95; BMI 27.4
--- NOTE | 2024-07-08 02:11 | CTR_ITS ---
PROCEDURE INFORMATION: Exam: CT Abdomen And Pelvis Without Contrast Exam date and time: 07/08/2024 2:30 AM Age: 39 years old Clinical indication: Abdominal pain; Flank; Right; Prior surgery; Surgery date: 6+ months; Surgery type: Lithotripsy x3; Additional info: Right flank pain history of kidney stones TECHNIQUE: Imaging protocol: Computed tomography of the abdomen and pelvis without contrast. Radiation optimization: All CT scans at this facility use at least one of these dose optimization techniques: automated exposure control; mA and/or kV adjustment per patient size (includes targeted exams where dose is matched to clinical indication); or iterative reconstruction. COMPARISON: CT kidney stone [id number] 12/04/2022 10:12 AM RADIATION DOSE METRICS: Total DLP (mGy-cm): 615.43 FINDINGS: Lungs: Lung bases are clear as visualized. Heart: Base of heart is unremarkable as visualized. Liver: Normal. No mass. Gallbladder and biliary ducts: Prominent gallbladder. Pancreas: Normal. No ductal dilation. Spleen: Normal. No splenomegaly. Adrenal glands: Normal. No mass. Kidneys and ureters: Bilateral nonobstructive nephrolithiasis. Two calcified urinary stones are appreciated at the level of the right ureteropelvic junction. The most distal stone measures up to 5.0 mm (series 3, image 104). The more proximal stone measures up to 5.1 mm (series 3, image 100). The stone results in severe pelviectasis and moderate to severe hydronephrosis. Right perinephric stranding is seen. Notable edematous hypertrophy of the right kidney. Inflammatory stranding of the right renal pelvis in the right proximal periureteral fat. There is a punctate stone at the distal left posterior renal pelvis measuring up to 3.2 mm (series 3, image 76). The stone does not seem to be causing significant upstream obstruction at this time. Stomach and bowel: Mild colonic stool burden. Appendix: No evidence of appendicitis. Intraperitoneal space: Unremarkable. No free air. No significant fluid collection. Vasculature: Small posterior aortic wall atherosclerotic calcification is seen. Lymph nodes: Unremarkable. No enlarged lymph nodes. Urinary bladder: Unremarkable as visualized. Reproductive: Unremarkable as visualized. Bones/joints: Degenerative changes of the visualized osseous structures without acute or aggressive abnormality. Soft tissues: Unremarkable. CT/CT kidney stone [id number] IMPRESSION: 1. 2 calcified urinary stones are obstructing the right renal pelvis with the above details. 2. Additional punctate stone is seen in the distal posterior left renal pelvis, not causing obstruction at this time. 3. Nonobstructive nephrolithiasis is seen bilaterally additionally.
--- NOTE | 2024-07-08 02:16 | ED_ITS ---
HPI - Abdominal Pain 2 General: Chief Complaint: Abdominal Pain Stated Complaint: Possible Kidney Stone Time Seen by Provider: 07/08/24 02:00 History of Present Illness: Patient presents to the ER with a right-sided flank pain that radiates down to her groin. She does have a history of kidney stones and she thinks it is a kidney stone trying to pass. Patient is had mild nausea and vomiting. No fever or chills. Related Data Date of Last Menstrual Period: 06/24/24 Home Medications Medication Instructions Recorded Confirmed diphenhydramine HCl 25 mg capsule 25 - 50 mg PO TID PRN Allergy 12/04/22 02/16/24 (Benadryl) Symptoms ibuprofen 200 mg tablet 600 mg PO Q6H PRN Pain 12/04/22 02/16/24 Previous Rx's Medication Instructions Recorded buspirone 10 mg tablet 10 mg PO TID PRN Anxiety #90 tabs 01/10/23 oxycodone 5 mg/5 mL oral solution 10 mg (10 mL) PO Q6H PRN pain 7 02/16/24 days #250 mL albuterol sulfate 2.5 mg/3 mL 2.5 mg (3 mL) inhalation Q4H PRN 06/08/24 (0.083 %) solution for nebulization shortness of breath or wheezing #180 mL albuterol sulfate 90 mcg/actuation 2 puff inhalation 6XD PRN 06/08/24 aerosol inhaler (Ventolin HFA) shortness of breath or wheezing #8.5 grams azithromycin 250 mg tablet See Rx Instructions PO .COMPLEX #6 06/08/24 tabs nebulizers #1 ea 06/08/24 ondansetron 4 mg disintegrating 4 mg PO Q8H PRN nausea and 06/08/24 tablet vomiting #60 tabs promethazine-DM 6.25 mg-15 mg/5 mL 5 - 10 ml PO Q6H PRN cough #200 mL 06/08/24 oral syrup ondansetron HCl 4 mg tablet 4 mg PO Q8H PRN nausea and 07/08/24 vomiting #14 tabs Allergies Allergy/AdvReac Type Severity Reaction Status Date / Time Alpha-Gal Allergy Unknown Verified 07/08/24 02:11 (Brzdwhhje-Riqmg-3,3-Gala beef derived (bovine) Allergy ALGY-Hives Verified 07/08/24 02:11 gelatin Allergy ALGY-Hives Verified 07/08/24 02:11 pork derived (porcine) Allergy ALGY-Hives Verified 07/08/24 02:11 Review of Systems 2 General: Reports: 10 or more systems reviewed and unremarkable except in HPI and below PFSH ED 2 PFSH: Medical History GERD (gastroesophageal reflux disease) Smoker unmotivated to quit Elevated parathyroid hormone URI with cough and congestion Reactive airway disease Chronic nausea Allergic rhinitis due to allergen Anxiety and depression Allergy to alpha-gal Urolithiasis Renal atrophy, left Hydronephrosis, left Kidney stones Pyelonephritis ASCUS with positive high risk HPV cervical Surgical History Hx of oral surgery (Unknown) Hx of foot surgery (Unknown) x 2 H/O lithotripsy (Unknown) x 3 Family History Mother Thyroid disease Thyroid cancer Denies family history of Colon cancer Ovarian cancer Diabetes Clotting disorder Hyperlipidemia Breast cancer Anesthesia complication Bleeding disorder Hypertension Uterine cancer Stroke Social History Smoking and tobacco/nicotine status: unknown if used tobacco/nicotine Alcohol intake: current Alcohol intake frequency: 3 or more drinks per day Alcohol type: hard liquor Substance/Drug Use: never Marital status: Current occupational status: unemployed Female Reproductive History: Date of last menstrual period: 06/24/24 Physical Exam 2 Const: COMMON NORMALS: no acute distress, average body habitus, patient oriented x3, no limitations, healthy appearing, alert and well nourished HENMT: COMMON NORMALS: normocephalic, atraumatic, hearing grossly normal bilaterally, external ears normal, Normal external nose present and moist oral mucous membranes HEAD & SCALP: normocephalic and atraumatic NOSE: Normal external nose present EXTERNAL EAR: Yes external ears normal Neck/C-Spine: COMMON NORMALS: no JVD Chest: COMMONS NORMALS: normal inspection of the chest and normal palpation of entire chest wall Resp: COMMON NORMALS: normal respiratory effort, No retractions, No use of accessory muscles and clear to auscultation bilaterally AUSCULTATION: clear to auscultation bilaterally Cardio: COMMON NORMALS: no JVD, regular rate, regular rhythm, S1 normal heart sound present, S2 normal heart sound present, No gallops present (Cardio), No clicks present (Cardio), No murmurs present (Cardio) and No rub (Cardio) R ATE: regular rate RHYTHM: regular rhythm HEART SOUNDS: S1 normal heart sound present and S2 normal heart sound present GI: COMMON NORMALS: Normal to inspection, nondistended, normoactive bowel sounds present, Soft to palpation, non-tender, No hepatosplenomegaly present and no masses PALPATION: Yes Soft to palpation and Yes No hepatosplenomegaly present Neuro: COMMON NORMALS: patient oriented x3 SENSORIUM/ORIENTATION: Yes alert Course 2 Vital Signs: Vital signs: Vital Signs Temperature 97.9 F 07/08/24 02:07 Pulse Rate 79 07/08/24 04:23 Respiratory Rate 18 07/08/24 04:23 Blood Pressure 103/79 07/08/24 04:23 Pulse Oximetry 96 07/08/24 04:23 Oxygen Delivery Me thod Room Air 07/08/24 04:23 MDM - Abdominal Pain Medical Decision Making Lab work was reviewed, abdomen pelvis CT scan was reviewed, 2 obstructing stones in the right UPJ with severe hydro-. Patient's pain and nausea is controlled. Dr. Benitez urology was consulted at [place] since the patient is already have success established patient with him. He said since the lab work was normal he will see her in the office today and have them call their office for second morning. Discussed this with the patient patient is comfortable with this decision. Medical Records I reviewed the patient's medical records. Lab Data I reviewed the patient's lab results. 07/08/24 02:15 07/08/24 02:15 Labs/Radiology: Radiology Impressions Abdomen/Pelvis CT 07/08/24 02:11 IMPRESSION: 1. 2 calcified urinary stones are obstructing the right renal pelvis with the above details. 2. Additional punctate stone is seen in the distal posterior left renal pelvis, not causing obstruction at this time. 3. Nonobstructive nephrolithiasis is seen bilaterally additionally. Laboratory Results WBC 8.59 10^3/uL (3.29-11.43) 07/08/24 02:15 RBC 3.94 10^6/uL (3.85-5.65) 07/08/24 02:15 Hgb 13.90 g/dL (11.27-16.99) 07/08/24 02:15 Hct 40.0 % (36-47) 07/08/24 02:15 MCV 101.5 fl (85-98) H 07/08/24 02:15 MCH 35.3 pg (27-33) H 07/08/24 02:15 MCHC 34.8 g/dL (30-55) 07/08/24 02:15 RDW 11.9 % (12.1-15.1) L 07/08/24 02:15 Plt Count 296 10^3/cmm (157-399) 07/08/24 02:15 MPV 9.4 fL (7.4-10.4) 07/08/24 02:15 Neut % (Auto) 61.2 % 07/08/24 02:15 Lymph % (Auto) 25.5 % 07/08/24 02:15 [place] % (Auto) 9.8 % 07/08/24 02:15 Eos % (Auto) 2.8 % 07/08/24 02:15 Baso % (Auto) 0.6 % 07/08/24 02:15 Neut # (Auto) 5.26 10^3/uL (1.8-7.7) 07/08/24 02:15 Lymph # (Auto) 2.2 10^3/uL (0.8-4.8) 07/08/24 02:15 [place] # (Auto) 0.8 10^3/uL (0.2-0.9) 07/08/24 02:15 Eos # (Auto) 0.2 10^3/uL (0.0-0.8) 07/08/24 02:15 Baso # (Auto) 0.1 10^3/uL (0.0-0.1) 07/08/24 02:15 Nucleated RBC % (auto) 0 % 07/08/24 02:15 Nucleated RBCs # 0.0 /100WBC 07/08/24 02:15 Sodium 136 mmol/L (136-145) 07/08/24 02:15 Potassium 3.6 mmol/L (3.5-5.1) 07/08/24 02:15 Chloride 98 mmol/L (98-107) 07/08/24 02:15 Carbon Dioxide 24 mmol/L (22-29) 07/08/24 02:15 Anion Gap 17.6 (5-19) 07/08/24 02:15 BUN 16 mg/dL (6-20) 07/08/24 02:15 Creatinine 1.1 mg/dL (0.5-0.9) H 07/08/24 02:15 GFR Calculation 55.3 mL/min (90-130) L 07/08/24 02:15 Glucose 111 mg/dL (65-115) 07/08/24 02:15 Calculated Osmolality 284 mOsm/kg (285-295) L 07/08/24 02:15 Calcium 9.9 mg/dL (8.5-10.5) 07/08/24 02:15 Total Bilirubin 0.7 mg/dL (0.15-1.2) 07/08/24 02:15 AST 18 U/L (0-32) 07/08/24 02:15 ALT 22 U/L (0-33) 07/08/24 02:15 Alkaline Phosphatase 52 U/L (35-105) 07/08/24 02:15 Total Protein 7.3 g/dL (6.6-8.7) 07/08/24 02:15 Albumin 4.7 g/dL (3.5-5.2) 07/08/24 02:15 Globulin 2.6 g/dL (1.3-4.6) 07/08/24 02:15 All radiology interpretation(s) finalized by discharge Discharge Plan Discharge Patient Disposition: Home Clinical Impression: Bilateral kidney stones Condition: Stable Prescriptions: New ondansetron HCl 4 mg tablet 4 mg PO Q8H PRN (Reason: nausea and vomiting) Qty: 14 0RF No Action Nexplanon 68 mg implant 1 implant subdermal ONCE Qty: 1 0RF buspirone 10 mg tablet 10 mg PO TID PRN (Reason: Anxiety) Qty: 90 3RF oxycodone 5 mg/5 mL solution 10 mg PO Q6H PRN (Reason: pain) 7 Days Qty: 250 0RF promethazine-DM 6.25-15 mg/5 mL syrup 5 - 10 ml PO Q6H PRN (Reason: cough) Qty: 200 0RF albuterol sulfate 2.5 mg /3 mL (0.083 %) solution for nebulization 2.5 mg inhalation Q4H PRN (Reason: shortness of breath or wheezing) Qty: 180 0RF albuterol sulfate [Ventolin HFA] 90 mcg/actuation HFA aerosol inhaler 2 puff inhalation 6XD PRN (Reason: shortness of breath or wheezing) Qty: 8.5 11RF azithromycin 250 mg tablet See Rx Instructions PO .COMPLEX Qty: 6 0RF Rx Instructions: For 250 mg dose pack: take 500 mg today (day 1), then 250 mg for 4 days (days 2-5) PO (DME) nebulizers Misc See Rx Instructions .Route Qty: 1 0RF Rx Instructions: 1 nebulizer and all required supplies ondansetron 4 mg tablet,disintegrating 4 mg PO Q8H PRN (Reason: nausea and vomiting) Qty: 60 2RF diphenhydramine HCl [Benadryl] 25 mg Capsule 25 - 50 mg PO TID PRN (Reason: Allergy Symptoms) ibuprofen 200 mg Tablet 600 mg PO Q6H PRN (Reason: Pain) Discharge Orders: Discharge ED (Routine); Ordered 07/08/24 Ordered By: Juan Dobbins Patient Instructions: Kidney Stones Activity Restrictions/Additional Instructions: Your CT scan showed multiple kidney stones but the 2 most prominent ones were on your right side. They are obstructing your urine flow. Your case has been discussed with Dr. Benitez which you call his office first thing this morning and he will probably will be able to work you in sometime today for further evaluation treatment. 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
[2024-07-08] MEDS: ketorolac 30 mg/mL INJ IVP (02:19)
[2024-07-08] MEDS: ondansetron 2 mg/ML SDV 2 mL 4 MG IVP ×3 (02:19→05:17)
[2024-07-08 02:25] LABS: Basophils # 0.1 10^3/uL (0.0-0.1); Basophils % 0.6 %; Eosinophils # 0.2 10^3/uL (0.0-0.8); Eosinophils % 2.8 %; Lymphocytes # 2.2 10^3/uL (0.8-4.8); Lymphocytes % 25.5 %; Mean Corpuscular HGB Conc 34.8 g/dL (30-55); Mean Corpuscular Hemoglobin 35.3 pg (27-33); Mean Corpuscular Volume 101.5 fl (85-98); Mean Platelet Volume 9.4 fL (7.4-10.4); Monocytes # 0.8 10^3/uL (0.2-0.9); Monocytes % 9.8 %; Neutrophils # 5.26 10^3/uL (1.8-7.7); Neutrophils % 61.2 %; Nucleated Red Blood Cells % 0 %; Platelet Count 296 10^3/cmm (157-399); Red Blood Count 3.94 10^6/uL (3.85-5.65); Red Cell Distribution Width 11.9 % (12.1-15.1); White Blood Count 8.59 10^3/uL (3.29-11.43)
[2024-07-08 02:46] LABS: Alanine Aminotransferase 22 U/L (0-33); Albumin Level 4.7 g/dL (3.5-5.2); Alkaline Phosphatase 52 U/L (35-105); Anion Gap 17.6 (5-19); Aspartate Amino Transferase 18 U/L (0-32); Blood Urea Nitrogen 16 mg/dL (6-20); Calcium 9.9 mg/dL (8.5-10.5); Carbon Dioxide 24 mmol/L (22-29); Chloride 98 mmol/L (98-107); Creatinine Clr Calc Pharmacy 72.0017; Globulin 2.6 g/dL (1.3-4.6); Glomerular Filtration Rate 55.3 mL/min (90-130); Glucose 111 mg/dL (65-115); Osmolality Calculated 284 mOsm/kg (285-295); Potassium 3.6 mmol/L (3.5-5.1); Sodium 136 mmol/L (136-145); Total Bilirubin 0.7 mg/dL (0.15-1.2); Total Protein 7.3 g/dL (6.6-8.7)
[2024-07-08] MEDS: morphine 4 mg/mL SDV 1 mL IVP ×3 (02:56→05:17)
[2024-07-08 02:57] VITALS: BP 126/85; PULSE 83; RESP 16; O2SAT 98
[2024-07-08 03:13] VITALS: BP 105/65; PULSE 78; RESP 20; O2SAT 94
[2024-07-08 03:58] VITALS: BP 107/68; PULSE 76; RESP 18; O2SAT 93
[2024-07-08 04:23] VITALS: BP 103/79; PULSE 79; RESP 18; O2SAT 96
[2024-07-08 05:11] VITALS: BP 113/76; PULSE 75; RESP 16; O2SAT 95
== END 2024-07-08 05:24 | disposition home or self-care (01) ==
PROVIDERS: Emergency Provider Emergency Medicine
DX: N20.0 Calculus of kidney (principal)
CPT/HCPCS: 36415; 74176; 80053; 85025; 96374; 96375; 96376; 99285; J1885; J2270; J2405

== ENCOUNTER → 2024-09-17 15:11 | Outpatient (BNVA) | payer OTHER, SELFPAY | PROVIDERS: Visit Provider Nurse Practitioner Women's Health | DX: Z12.4 Encounter for screening for malignant neoplasm of cervix (principal); Z20.2 Contact with and (suspected) exposure to infections with a predominantly sexual mode of transmission | CPT/HCPCS: 86592; 86803; 87340; 87624; 87806 ==

== ENCOUNTER 2025-04-03 20:36 | Emergency (ER) | payer OTHER, SELFPAY ==
--- OUTSIDE RECORDS SUMMARY | 2023-12-14 04:00 | XMS_ITS ---
Author Organization [facility] Address [address] [place] [address] Care Team Providers Care Third Cook Name Role Phone Katy Lorenzo Primary Care Provider Migration, Provider Unavailable Unavailable REASON FOR VISIT EMR-[facility] Encounters Encounter Location Date Provider Diagnosis Migrated_Facility 0 0 12/14/2023 Provider Migration Plan Of Treatment Medication Medication Name Sig Start Date Stop Date Notes Nitrofurantoin Macrocrystal 100 MG Capsule Oral 01/16/2023 01/23/2023 Sulfamethoxazole-Trimethopri m 800-160 MG Tablet Oral 02/18/2023 02/19/2023 Tamsulosin HCl 0.4 MG Capsule Oral 01/16/20232022 ondansetron 8 MG Disintegrat ing Oral Tablet ORAL 01/16/2023 01/23/2023 *Reorder from Dc dispan for eRx and Interaction Alerts* Progress Notes * Nilsa BERNARDDOB: 5 (40 yo F)Acc No.[id number]:12/14/2023 Patient: Nilsa WYATT :1985 A ge:38 Y S ex:Female Address:[address] [place] [address] [place] [id number] * Refills Stop Nitrofurantoin Macrocrystal Capsule, 100 MG, Oral Stop Sulfamethoxazole-Trimethoprim Tablet, 800-160 MG, Oral Stop Tamsulosin HCl Capsule, 0.4 MG, Oral Stop ondansetron 8 MG Disintegrating Oral Tablet, ORAL Subjective: * Chief Complaints: * E MR-Chuy * * Date:
--- OUTSIDE RECORDS SUMMARY | 2023-12-15 04:00 | XMS_ITS ---
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 Name Role Phone Katy Lorenzo Primary Care Provider Migration, Provider Unavailable Unavailable Allergies Allergen (clinical drug ingredient) Drug/Non Drug Allergy documented on EMR Reaction Allergy Type Onset Date Status Animal derivatives (uncoded) anaphylaxis Allergy Active Capsule #1-DRcaps angioedema Drug Allergy Active REASON FOR VISIT EMR-[facility] Medications Medication SIG (Take, Route, Frequency, Duration) Notes Start Date End Date Status buspirone hydrochloride 10 MG Oral Tablet *Reorder from [facility] for eRx and Interaction Alerts* 02/18/2023 03/20/2023 Active Cefdinir 300 MG Capsule Oral 05/14/2023 05/21/2023 Active Sertraline 50 MG Oral Tablet *Reorder from [facility] for eRx and Interaction Alerts* 02/18/2023 03/20/2023 Active Social History Social History Additional Details Category Social Info Options Details Migrated Social History Migrated Social History History of tobacco use : Current everyday tobacco user , Alcohol intake : , Smoking Status : Current everyday tobacco user Encounters Encounter Location Date Provider Diagnosis Migrated_Facility 0 0 12/15/2023 Provider Migration Plan Of Treatment No Information Progress Notes * Nilsa BERNARDDOB: 5 (40 yo F)Acc No.[id number]:12/15/2023 Patient: Nilsa WYATT :1985 A ge:38 Y S ex:Female Address:[address] [place] [id number] Subjective: * Chief Complaints: * E MR-Chuy * Social History: M igrated Social History: M igrated Social History: History of tobacco use : Current everyday tobacco user , Alcohol intake : , Smoking Status : Current everyday tobacco user. * Medications: T akingCefdinir 300 MG Capsule Oral , stop date 05/21/2023Sertraline 50 MG Oral Tablet , stop date 03/20/2023, Notes to Pharmacist: *[facility]*buspirone hydrochloride 10 MG Oral Tablet , stop date 03/20/2023, Notes to Pharmacist: *[facility]*Taking Cefdinir 300 MG Capsule Oral , stop date 05/21/2023Taking Sertraline 50 MG Oral Tablet , stop date 03/20/2023, Notes to Pharmacist: *[facility]*Taking buspirone hydrochloride 10 MG Oral Tablet , stop date 03/20/2023, Notes to Pharmacist: *[facility] and Interaction [facility]* * Allergies: A nimal derivatives: anaphylaxis - [facility]ergy [facility]: angioedema - Allergy * * Date:
--- OUTSIDE RECORDS SUMMARY | 2024-07-21 09:00 | XMS_ITS ---
Author Organization [facility] Address [address] [place] [address] Care Team Providers Care Manager House Name Role Phone JANETT BETANCOURT Unavailable [phone] JYOTSNA JIMENEZ Unavailable [phone] REASON FOR VISIT BL URS Stone Manip Stent Exchange/Removal @ MAIN Encounters Encounter Location Date Provider Diagnosis [facility] [address] [place] [place] [address] 07/21/2024 JYOTSNA JIMENEZ Plan Of Treatment No Information Progress Notes * LUCILLENilsa CARMONADOB: 5 (40 yo F)Acc No.[id number]:07/21/2024 Patient: Nilsa WYATT Provider: Ginger JIMENEZ MD :1985 A ge:39 Y S ex:Female Date:07/21/2024 Address:[address] [place], [place] [id number] * Billing Information: * Visit Code: * Procedure Codes: * Electronic signature of AUST IN MD BARBARA on 04/03/2025 at 08:44 PM CDT Sign off status: Pending * Provider: Ginger JIMENEZ MD Date: 0 07/21/2024 Generated for Printi ng/Faxing/eTransmitting on: 1 08:44 PM CDT
--- OUTSIDE RECORDS SUMMARY | 2024-10-26 06:20 | XMS_ITS ---
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 Role Phone JANETT BETANCOURT Unavailable [phone] JYOTSNA BENITEZ Unavailable [phone] REASON FOR VISIT 2 mo w/ Litholink results Encounters Encounter Location Date Provider Diagnosis [facility] [employer] [address] [place] [address] 10/26/2024 JYOTSNA BENITEZ Foreign body in othe r parts of genitourinary tract, initial encounter T19.8XXA ; Calculus of kidney N20.0 ; Ureteral stent retained Z96.0 ; Ureteral stone N20.1 ; Hydronephrosis of right kidney N13.30 ; Bilateral flank pain R10.9 ; Gross hematuria R31.0 ; History of nephrolithiasis Z87.442 and Family history of kidney stones Z84.1 Assessments Encounter Date Diagnosis (ICD Code) Assessment Notes Treatment Notes Treatment Clinical Notes Section Notes 10/26/2024 Foreign body in other parts of genitourinary tract, initial encounter (ICD-10 - T19.8XXA) 39 yo female s/p bilateral URS on 07/21. R stent removed today without issue. Plan: -RTC in 2 months with BMP, PTH and LithoLink all questions answered 10/26/2024 Calculus of kidney (ICD-10 - N20.0) 39 yo female s/p bilateral URS on 07/21. R stent removed today without issue. Plan: -RTC in 2 months with BMP, PTH and LithoLink all questions answered 10/26/2024 Ureteral stent retained (ICD-10 - Z96.0) 39 yo female s/p bilateral URS on 07/21. R stent removed today without issue. Plan: -RTC in 2 months with BMP, PTH and LithoLink all questions answered 10/26/2024 Ureteral stone (ICD-10 - N20.1) 39 yo female s/p bilateral URS on 07/21. R stent removed today without issue. Plan: -RTC in 2 months with BMP, PTH and LithoLink all questions answered 10/26/2024 Hydronephrosis of right kidney (ICD-10 - N13.30) 39 yo female s/p bilateral URS on 07/21. R stent removed today without issue. Plan: -RTC in 2 months with BMP, PTH and LithoLink all questions answered 10/26/2024 Bilateral flank pain (ICD-10 - R10.9) 39 yo female s/p bilateral URS on 07/21. R stent removed today without issue. Plan: -RTC in 2 months with BMP, PTH and LithoLink all questions answered 10/26/2024 Gross hematuria (ICD-10 - R31.0) 39 yo female s/p bilateral URS on 07/21. R stent removed today without issue. Plan: -RTC in 2 months with BMP, PTH and LithoLink all questions answered 10/26/2024 History of nephrolithiasis (ICD-10 - Z87.442) 39 yo female s/p bilateral URS on 07/21. R stent removed today without issue. Plan: -RTC in 2 months with BMP, PTH and LithoLink all questions answered 10/26/2024 Family history of kidney stones (ICD-10 - Z84.1) 39 yo female s/p bilateral URS on 07/21. R stent removed today without issue. Plan: -RTC in 2 months with BMP, PTH and LithoLink all questions answered Plan Of Treatment No Information Progress Notes * MARCO ANTONIONilsaDOB: 5 (40 yo F)Acc No.[id number]:10/26/2024 Progress Notes Patient: Nilsa WYATT Provider: Ginger BENITEZ MD :1985 A ge:39 Y S ex:Female Date:10/26/2024 Address:[address] [place] [address] , [facility] Subjective: * Chief Complaints: * 1 . 2 mo w/ Litholink results. * HPI: M igrated HPI: Ms. Bernard is a 39-year-old female patient referred by [facility] for bilateral ureteral stones. She was seen at [facility] emergency room this morning with complaint of right-sided flank pain and nausea/vomiting. She reports right flank pain started 3 days ago, she has had intermittent left flank discomfort as well. White blood cell count normal, creatinine 1.1. She does have history of kidney stones and has seen Dr. Mata and Dr. Luo in the past. Reports strong family history of kidney stones in her mother, aunts and cousins. CT abdomen pelvis shows 2 calcifications in the proximal right ureter measuring 5 mm, and 5.1 mm, with obstruction of her right kidney causing severe hydronephrosis with stranding around her right kidney. There is a small stone in the proximal left ureter measuring 3 mm, no overt hydronephrosis. She has had persistent nausea/vomiting. Nothing to eat today. She reports gross hematuria this morning. Denies fever or chills. [facility] for bilateral ureteral stent placement on 07/08/24. Underwent bilateral ureteral URS, stone manip, R stent placement 07/21/24. Here todya for 2m f/u with Litholink Litholink. * Medical History: Objective: * Vitals: Assessment: * Assessment: 1. F oreign body in other parts of genitourinary tract, initial encounter - T19.8XXA (Primary)? 2. C alculus of kidney - N20.0 3 . U reteral stent retained - Z96.0 S pecify :bilateral, 07/08/24 Dr. Benitez 4 . U reteral stone - N20.1 5 . H ydronephrosis of right kidney - N13.30 6 . B ilateral flank pain - R10.9 S pecify :R>L 7 . G ross hematuria - R31.0 8 . H istory of nephrolithiasis - Z87.442 9 . F amily history of kidney stones - Z84.1 39 yo female s/p bilateral U RS on 07/21. R stent removed today without issue. Plan: -RTC in 2 months with BMP, PTH and LithoLink all questions answered. Plan: * Treatment: * Billing Information: * Visit Code: * Procedure Codes: * Electronic signature of AUST IN MD BARBARA on 04/03/2025 at 08:44 PM CDT Sign off status: Pending * Provider: Ginger BENITEZ MD Date: 0 10/26/2024 Generated for Penny veliz/Rosario/Talonitting on: 1 08:44 PM CDT History and Physical Notes * HPI (History of Present Illness) Category Sub-Category Detail Notes Category Not es Migrated HPI Ms. Bernard is a 39-year-old female patient referred by [facility] for bilateral ureteral stones. She was seen at [facility] emergency room this morning with complaint of right-sided flank pain and nausea/vomiting. She reports right flank pain started 3 days ago, she has had intermittent left flank discomfort as well. White blood cell count normal, creatinine 1.1. She does have history of kidney stones and has seen Dr. Mata and Dr. Luo in the past. Reports strong family history of kidney stones in her mother, aunts and cousins. CT abdomen pelvis shows 2 calcifications in the proximal right ureter measuring 5 mm, and 5.1 mm, with obstruction of her right kidney causing severe hydronephrosis with stranding around her right kidney. There is a small stone in the proximal left ureter measuring 3 mm, no overt hydronephrosis. She has had persistent nausea/vomiting. Nothing to eat today. She reports gross hematuria this morning. Denies fever or chills. [facility] to [facility] as a direct admit for bilateral ureteral stent placement on 07/08/24. Underwent bilateral ureteral URS, stone manip, R stent placement 07/21/24. Here todya for 2m f/u with Litholink Litholink
[2025-04-03 20:40] VITALS: BP 124/83; PULSE 117; RESP 22; TEMP 36.7; O2SAT 97; BMI 25.8
--- OUTSIDE RECORDS SUMMARY | 2025-04-03 20:44 | XMS_ITS | Patient Health Record ---
Author Organization [facility] Address [address] [place] [address] Care Team Providers Care Planning Consultant Name Role Phone BjKaty Primary Care Provider Allergies Allergen (clinical drug ingredient) Drug/Non Drug Allergy documented on EMR Reaction Allergy Type Onset Date Status Animal derivatives (uncoded) anaphylaxis Allergy Active Capsule #1-DRcaps angioedema Drug Allergy Active Reason For Referral No Information Medications Medication SIG (Take, Route, Frequency, Duration) Notes Start Date End Date Status PARoxetine HCl 20 MG Tablet 1/2 tablet in the evening for 14 days then go to 1 tab daily Orally Once a day; Duration: 30 day(s) Active Fluticasone Propionate 50 MCG/ACT Suspension 1 spray in each nostril prn Nasally Once a day Active Azelastine HCl 0.1 % Solution 1 puff in each nostril prn Nasally Twice a day Active busPIRone HCl 10 MG Tablet 1 tablet as needed Orally Three times a day; Duration: 90 days Active Omeprazole 20 MG Capsule Delayed Release 1 capsule 30 minutes before morning meal Orally Once a day; Duration: 14 days 11/21/2021 Active Synthroid 25 MCG Tablet 1 tablet in the morning on an empty stomach Orally Once a day; Duration: 30 day(s) Active Ondansetron HCl 8 MG Tablet 1 tablet on the tongue and allow to dissolve as needed Orally Q 8 hours; Duration: 30 day(s) dose increase Active EPINEPHrine 0.3 MG/0.3ML Solution Prefilled Syringe as directed Injection as needed; Duration: 30 days Active lamoTRIgine 25 MG Tablet 1 tablet daily for 14 days then may increase to twice daily Orally twice daily; Duration: 30 day(s) 11/21/2021 Active Famotidine 20 MG Tablet 1 tablet as needed Orally Once a day; Duration: 30 day(s) Active Vitamin B12 1000 MCG Tablet Extended Release 1 tablet Orally Once a day; Duration: 30 day(s) 07/29/2020 Not-Taking Vitamin C 500 MG Capsule as directed Orally 07/29/2020 Not-Takin g Vitamin B6 50 MG Tablet 1 tablet Orally Once a day; Duration: 30 day(s) 07/29/2020 Not-Taking Benadryl Allergy 25 MG Tablet 1-2 tabs as needed Orally Q 6 hours; Duration: 30 days Active Ondansetron 8 MG Tablet Disintegrating 1 tablet on the tongue and allow to dissolve as needed Orally three times daily; Duration: 30 day(s) 12/06/2021 Active Social History Tobacco Use: Social History Observation Description Date Details (start date - stop date) Current Smoker NA - NA Social History Depression Screening Social Info Question Answer Notes PHQ-9 Little interest or pleasure in doing thin gs Not at all Feeling down, depressed, or hopeless Not at all Trouble falling or staying asleep, or sleeping t oo much Not at all Feeling tired or having little energy Not at all Poor appetite or overeating Not at all Feeling bad about yourself, or that you are a failure, or have let yourself or your family down Not at all Trouble concentrating on thi ngs, such as reading the newspaper or watching television Not at all Moving or speaking so slowly that other people could have noticed. Or the opposite ? being so fidgety or restless that you have been moving around a lot more than usual Not at all Thoughts that you would be b trever off , or of hurting yourself in some way Not at all Total Score 0 Drugs/Alcohol: Social Info Question Answer Notes Alcohol Screen (Audit-C) Did you have a drink containing alcohol in the past year? Yes How often did you have a drink containing alcohol in the past year? 2 to 3 times a week (3 points) How many drinks did you have on a typical day when you were drinking in the past year? 3 or 4 drinks (1 point) How often did you have 6 or more drinks on one occasion in the past year? Less than monthly (1 point) Points 5 Interpretation Positive Drugs Have you used drugs other than those for medical reasons in the past 12 months? No Caffeine Intake: 1-2 cups per day Tobacco Use: Social Info Question Answer Notes xTobacco Use/Smoking Are you a current smoker How often do you smoke cigarettes? every day How many cigarettes a day do you smoke? 11-20 How soon after you wake up do you smoke your first cigarette? 6-30 minutes Are you interested in quitting? Thinking about quitting Additional Details Category Social Info Options Details Drugs/Alcohol: Do you smoke marijuana? De nies Do you drink alcohol? Yes Migrated Social History Migrated Social History History of tobacco use : Current everyday tobacco user , Alcohol intake : , Smoking Status : Current everyday tobacco user Section Notes: PHQ-9: 09/29/20 PHQ-9: 09/29/20 PHQ-9: 09/29/20; started scotty howard at age 15yo. PHQ-9: 09/29/20; started smo anita at age 15yo. PHQ-9: 09/29/20; started smo anita at age 15yo. PHQ-9: 09/29/20; started smo anita at age 15yo. PHQ-9: 09/29/20; started smo anita at age 15yo. PHQ-9: 09/29/20; started smo anita at age 15yo. Problems Problem Type SNOMED Code ICD Code Onset Dates Problem Status W/U Status Risk Notes Problem Vitamin B12 deficiency anemia due to dietary causes (834485838) Other dietary vitamin B12 deficiency anemia (D51.3) Active confirmed Problem Nutritional anaemia (73449539) Other specified nutritional anemias (D53.8) Active confirmed Problem Hypercalcemia (60864368) Hypercalcemia (E83.52) Active confirmed Problem Generalized anxiety disorder (05672296) Generalized anxiety disorder (F41.1) Active confirmed Problem Essential hypertension (32163054) Essential hypertension (I10) Active confirmed Problem Vitamin D deficiency (65776224) Vitamin D deficiency (E55.9) Active confirmed Problem Tobacco user (906860229) Tobacco dependence due to cigarettes (F17.210) Active confirmed Problem Food allergy (844254946) Allergy to alpha-gal (Z91.018) Active confirmed Problem Chronic urticaria (56643338) Chronic urticaria (L50.8) Active confirmed Problem Gluten intolerance (4975661339) Gluten intolerance (K90.41) Active confirmed Problem Subclinical hypothyroidism (05446828) Subclinical hypothyroidism (E03.9) Active confirmed Problem 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) Active confirmed Plan Of Treatment No Information Insurance Providers Payer Name Payer Address Payer Phone Subscriber Number Group Number Insured Name Patient Relationship to Insured Coverage Start Date Coverage End Date [employer] [address] [place] [phone] [id number] Nilsa Bernard Self - patient is the insured Medical (General) History Medical History History ICD Code allergy to animal derivatives (gel capsu les, vaccines, etc.) Alpha-gal allergy, 2017 Hives L50.9 Environmental allergies Z91.09 Kidney stones N20.0 Tobacco dependence due to cigarettes F17 .210 Vitamin D deficiency E55.9 Subclinical hypothyroidism E03.9 Surgical History Surgery Date(Month/Year) lithotripsy 2016 Hospitalization History Reason Date(Month/Year) tongue piercing infection 2010
--- OUTSIDE RECORDS SUMMARY | 2025-04-03 20:44 | XMS_ITS | Data Portability ---
Author Organization JENNA Julián Azevedo [facility] Ramiro Aguirre [facility] Address [address] [address] Care Team Providers Care Dispatcher Service Chief Name Role Phone JAMEY WRAY Primary Care Provider Assessment Encounter Date Assessment Date Assessment LastModified by Organization Details LastModified Time 12/04/2023 12/04/2023 Advised patient to use heat and ice alternating. Compression and gentle massage. Use caution when getting around. Advised her to follow-up with PCP in the next 1-2 weeks. Not available 12/04/2023 14:10:40 Plan of Treatment Reminders Order Date Submit Date Provider Last Modified By Organization Details Last Modified Time Details Appointments None recorded. Lab urinalysis, complete [address] [facility] ([facility]), [address] [place] [address], [address], 4 15:57:30 culture, urine 2023 024 [place], [address] [place] [address], [address] [place], [address], 4 00:23:51 urinalysis, complete 2022 023 [email or web address] [facility] ([facility]), [address] [place] [address], [address], 3 15:34:06 culture, urine 2022 023 [facility], [address] [facility] [address], [address] [place], [address], 3 01:04:10 Referral None recorded. Procedures None recorded. Surgeries None recorded. Imaging XR, kidney + ureter + bladder - renal stone rule out [address] ([facility]), [address] [place], [address], 4 09:47:18 XR, kidney + ureter + bladder [address] ([facility]), [address] [place], [address], 3 10:53:06 Medication Orders ondansetron 8 mg disintegrat ing tablet 2023 024 [facility], [address], [place], [address], 4 14:10:56 ibuprofen 800 mg tablet 2023 024 [facility], [address], [place], [address], 4 14:10:59 chlorzoxazo ne 500 mg tablet 2023 024 [facility], [address], [place], [address], 4 14:10:55 tamsulosin 0.4 mg capsule [address] [facility], [address], [place], [address], 4 14:03:37 ondansetron 4 mg disintegrat ing tablet 2023 024 [facility] 15, [address], [place], [address], 4 13:35:01 Macrobid 100 mg capsule [address], [address], [place], [address], 4 14:03:04 meloxicam 7.5 mg tablet [address] [facility], [address], [place], [address], 4 14:02:55 ondansetron 4 mg disintegrat ing tablet 2022 023 [facility] 15, [address], [place], [address], 4 13:35:01 Patient TargetsNo targets recorded. Patient Instructions Encounter Date Encounter Id Patient Instructions Last Modified By Organization Details Last Modified Time 12/04/2023 [id number] Call or return for questions or concerns. Not available 12/04/2023 14:07:59 Reason for Referral None Reported. Results Created Date Observation Date Name Description Value Unit Range Abnormal Flag Note LastModifiedBy Organization Detail LastModifiedTime 11/28/19 23 11/29/2022 CULTU RE, URINE , ROUTI NE culture, urine, routine SEE NOTE CULTU RE, URINE , ROUTI NE Micro Numbe r: [id number] Test Statu s: Final Speci men Sourc e: Urine , clean catch Speci men Quali ty: Adequ ate Resul t: Mixed genit al sharon isola cece. These super ficia l bacte atiya are not indic ative of a urina ry tract infec tion. No furth er organ ism ident ifica tion is warra nted on this speci men. If clini roberto carlos indic ated, recol lect clean -catc h, mid-s tream urine and trans zenobia immed iatel y to Urine Cultu re Trans port Tube. Not Available [facility] [address] [place], [address], 11/29/2022 01:04:10 11/28/19 23 11/27/2022 urina lysis , compl ete color yellow Not Available [facility] ([facility]) [address] [place], [address], 11/27/2022 14:26:20 11/28/19 23 11/27/2022 urina lysis , compl ete clarity slight ly cloudy clear abnormal Not Available [facility] ([facility]) [address] [place], [address], 11/27/2022 14:26:20 11/28/19 23 11/27/2022 urina lysis , compl ete glucose negati ve negati ve normal Not Available [facility] ([facility]) [address] [place], [address], 11/27/2022 14:26:20 11/28/19 23 11/27/2022 urina lysis , compl ete bilirubin 1+ negati ve abnormal Not Available [facility] ([facility]) [address] [place], [address], 11/27/2022 14:26:20 11/28/19 23 11/27/2022 urina lysis , compl ete ketones 1+ negati ve abnormal Not Available [facility] ([facility]) [address] [place], [address], 11/27/2022 14:26:20 11/28/19 23 11/27/2022 urina lysis , compl ete specific gravity 1.015 1.005- 1.025 normal Not Available [facility] ([facility]) [address] [place], [address], 11/27/2022 14:26:20 11/28/19 23 11/27/2022 urina lysis , compl ete pH 6.5 5.0-7. 0 normal Not Available [facility] ([facility]) [address] [place], [address], 11/27/2022 14:26:20 11/28/19 23 11/27/2022 urina lysis , compl ete protein negati ve Not Available [facility] ([facility]) [address] [place], [address], 11/27/2022 14:26:20 11/28/19 23 11/27/2022 urina lysis , compl ete uro 2.0 Not Available [facility] ([facility]) [address] [place], [address], 11/27/2022 14:26:20 11/28/19 23 11/27/2022 urina lysis , compl ete nitrate negati ve negati ve normal Not Available [facility] ([facility]) [address] [place], [address], 11/27/2022 14:26:20 11/28/19 23 11/27/2022 urina lysis , compl ete blood negati ve negati ve normal Not Available [facility] ([facility]) [address] [place], [address], 11/27/2022 14:26:20 11/28/19 23 11/27/2022 urina lysis , compl ete leukocytes trace negati ve abnormal Not Available [facility] ([facility]) [address] [place], [address], 11/27/2022 14:26:20 11/28/19 23 11/27/2022 urina lysis , compl ete WBC 15-20 0 abnormal Not Available [facility] [address] [place], [address], 11/27/2022 14:26:20 11/28/19 23 11/27/2022 urina lysis , compl ete RBC 0-1 0 abnormal Not Available [facility] [address] [place], [address], 11/27/2022 14:26:20 11/28/19 23 11/27/2022 urina lysis , compl ete epi cells 25-30 0 abnormal Not Available [facility] ([facility]) [address] [place], [address], 11/27/2022 14:26:20 11/28/19 23 11/27/2022 urina lysis , compl ete bacteria 1+ mixed sharon Not Available [facility] ([facility]) [address] [place], [address], 11/27/2022 14:26:20 11/28/19 23 11/27/2022 urina lysis , compl ete other Not Available [facility] ([facility]) [address] [place], [address], 11/27/2022 14:26:20 08/20/19 24 08/21/2023 CULTU RE, URINE , ROUTI NE culture, urine, routine SEE NOTE CULTU RE, URINE , ROUTI NE Micro Numbe r: [id number] Test Statu s: Final Speci men Sourc e: Urine Speci men Quali ty: Adequ ate Resul t: Mixed genit al sharon isola cece. These super ficia l bacte atiya are not indic ative of a urina ry tract infec tion. No furth er organ ism ident ifica tion is warra nted on this speci men. If clini roberto carlos indic ated, recol lect clean -catc h, mid-s tream urine and trans zenobia immed iatel y to Urine Cultu re Trans port Tube. Not Available [facility] [address], [place], [address], 08/22/2023 00:23:51 08/20/19 24 08/20/2023 urina lysis , compl ete color yellow Not Available [facility] ([facility]) [address] [place], [address], 08/20/2023 14:35:39 08/20/19 24 08/20/2023 urina lysis , compl ete clarity clear clear Not Available [facility] ([facility]) [address] [place], [address], 08/20/2023 14:35:39 08/20/19 24 08/20/2023 urina lysis , compl ete glucose trace negati ve abnormal Not Available [facility] ([facility]) [address] [place], [address], 08/20/2023 14:35:39 08/20/19 24 08/20/2023 urina lysis , compl ete bilirubin 1+ negati ve abnormal Not Available [facility] ([facility]) [address] [place], [address], 08/20/2023 14:35:39 08/20/19 24 08/20/2023 urina lysis , compl ete ketones 2+ negati ve abnormal Not Available [facility] ([facility]) [address] [place], [address], 08/20/2023 14:35:39 08/20/19 24 08/20/2023 urina lysis , compl ete specific gravity 1.020 1.005- 1.025 Not Available [facility] ([facility]) [address] [place], [address], 08/20/2023 14:35:39 08/20/19 24 08/20/2023 urina lysis , compl ete pH 7.5 5.0-7. 0 abnormal Not Available [facility] ([facility]) [address] [place], [address], 08/20/2023 14:35:39 08/20/19 24 08/20/2023 urina lysis , compl ete protein 1+ abnormal Not Available [facility] [address] [place], [address], 08/20/2023 14:35:39 08/20/19 24 08/20/2023 urina lysis , compl ete uro 8.0 abnormal Not Available [facility] [address] [place], [address], 08/20/2023 14:35:39 08/20/19 24 08/20/2023 urina lysis , compl ete nitrate negati ve negati ve Not Available [facility] ([facility]) [address] [place], [address], 08/20/2023 14:35:39 08/20/19 24 08/20/2023 urina lysis , compl ete blood trace negati ve abnormal Not Available [facility] ([facility]) [address] [place], [address], 08/20/2023 14:35:39 08/20/19 24 08/20/2023 urina lysis , compl ete leukocytes negati ve negati ve Not Available [facility] ([facility]) [address] [place], [address], 08/20/2023 14:35:39 08/20/19 24 08/20/2023 urina lysis , compl ete WBC negati ve 0 Not Available [facility] ([facility]) [address] [place], [address], 08/20/2023 14:35:39 08/20/19 24 08/20/2023 urina lysis , compl ete RBC 4-6 0 abnormal Not Available [facility] ([facility]) [address] [place], [address], 08/20/2023 14:35:39 08/20/19 24 08/20/2023 urina lysis , compl ete epi cells 6-8 0 abnormal Not Available [facility] ( [facility]) [address] [place], [address], 08/20/2023 14:35:39 08/20/19 24 08/20/2023 urina lysis , compl ete bacteria 3+ amorph ous abnormal Not Available [facility] ([facility]) [address] [place], [address], 08/20/2023 14:35:39 08/20/19 24 08/20/2023 urina lysis , compl ete other negati ve Not Available [facility] ([facility]) [address] [place], [address], 08/20/2023 14:35:39 11/29/19 23 11/27/2022 XR, kidne y + urete r + bladd er No observ ation record ed. [email or web address] [facility] [address], [address], 11/28/2022 17:48:05 08/21/19 24 08/20/2023 XR, kidne y + urete r + bladd er No observ ation record ed. [email or web address] [facility] [address] [place], [address], 08/21/2023 13:06:37 Result Notes None recorded. Problems Name Problem SNOMED Code Status Onset Date Resolution Date Notes Provider Name and Address Organization Details Recorded Time Kidney stone 06382035 Active 020 Kidney Stone; 12/31/19 20 8:24AM by Francoise Tucker LPN, Office Visit; Promoted ; acuity set as *; Not Available [facility] 3 03:10:20 Problem Notes None recorded. Medical Equipment None Reported. Allergies Allergen ID Allergen Name Allergen Category Reaction Reaction Severity Criticality Documentation Date Start Date Code Code System Note Provider Name and Address Organization Details Recorded Time 59223 sodium dodecyl sulfate medicatio n hives Not available Not available 01/19/2023 9871 RxNorm React ion: Hives ; Comme nt: Recor ded 12/30 3:50P M by Master echeverria LPN, Histo rical Summa ry; Promo cece; Willie ni ce: *; Reaso n: Drug aller gy; ; Not Available [facility] 3 02:28:32 Medications Name Sig Start Date Stop Date Status Note LastModified by Organization Details LastModified Time cetirizin e 10 mg tablet daily 2023 active 0; Recorded 12/31/19 20 8:24AM by Francoise Tucker LPN, Office Visit; Not Available Not Available Not Available azithromy dany 250 mg tablet day 1, 1 tab days 2-5 12/03 completed Not Available Not Available Not Available ibuprofen 800 mg tablet TAKE 1 TABLET BY MOUTH THREE TIMES DAILY NEEDED FOR 10 DAYS active Not Available Not Available No t Available chlorzoxa zone 500 mg tablet TAKE 1 TABLET BY MOUTH THREE TIMES DAILY NEEDED FOR 10 DAYS active Not Available Not Available No t Available hydrocodo ne 5 mg-acetam inophen 325 mg tablet active Not Available Not Available Not Available ondansetr on HCl 8 mg tablet TAKE 1 TABLET BY MOUTH EVERY 8 HOURS NEEDED 12/03 completed Not Available Not Available Not Available prednison e 20 mg tablet TAKE 3 TABLETS BY MOUTH ONCE DAILY FOR 5 DAYS THEN 2 ONCE DAILY FOR 3 DAYS THEN 1 ONCE DAILY FOR 3 DAYS 12/03 completed Not Available Not Available Not Available sertralin e 100 mg tablet 12/03 completed Not Available Not Available Not Available sulfameth oxazole 800 mg-trimet hoprim 160 mg tablet Take 1 tablet every 12 hours by oral route for 5 days. 12/03 completed Not Available Not Available Not Available ondansetr on 8 mg disintegr ating tablet DISSOLVE 1 TABLET IN MOUTH TWICE DAILY NEEDED FOR 10 DAYS 2023 active Not Available Not Available Not Avai lable lamotrigi ne 25 mg tablet TAKE 1 TABLET BY MOUTH ONCE DAILY FOR 14 DAYS THEN TWICE DAILY 12/03 completed Not Available Not Available Not Available meloxicam 7.5 mg tablet TAKE 1 TABLET BY MOUTH ONCE DAILY FOR 30 DAYS 12/03 completed Not Available Not Available Not Available famotidin e 20 mg tablet TAKE 1 TABLET BY MOUTH TWICE DAILY FOR 5 DAYS 12/03 completed Not Available Not Available Not Available tamsulosi n 0.4 mg capsule TAKE 1 CAPSULE BY MOUTH ONCE DAILY FOR 14 DAYS 12/03 completed Not Available Not Available Not Available paroxetin e 20 mg tablet TAKE 1/2 TABLET BY MOUTH IN THE EVENING FOR 14 DAYS THEN GO TO 1 TAB DAILY FOR 30 DAYS 12/03 completed Not Available Not Available Not Available buspirone 10 mg tablet active Not Available Not Available Not Available monteluka st 10 mg tablet daily 12/03 completed 0; Recorded 12/31/19 20 8:24AM by Francoise Tucker LPN, Office Visit; Not Available Not Available Not Available albuterol sulfate HFA 90 mcg/actua tion aerosol inhaler 01/29 completed Not Available Not Available Not Available ondansetr on 4 mg disintegr ating tablet DISSOLVE 1 TABLET IN MOUTH THREE TIMES DAILY NEEDED FOR 10 DAYS 12/03 completed Not Available Not Available Not Available cefdinir 300 mg capsule 12/03 completed Not Available Not Available Not Available sertralin e 50 mg tablet 12/03 completed Not Available Not Available Not Available metoclopr amide 10 mg tablet 12/03 completed Not Available Not Available Not Available Ventolin 90 mcg/actua tion aerosol inhaler every four hours, as needed 12/03 completed prn cough/wh eezing; Recorded 07/11/19 22 3:45PM by ELLIE Bettencourt, Annotati on/Adden dum; Refill Quantity : 1; Each; Not Available Not Available Not Available nitrofura ntoin monohydra te/macroc rystals 100 mg capsule TAKE 1 CAPSULE BY MOUTH EVERY 12 HOURS FOR 5 DAYS 12/03 completed Not Available Not Available Not Available Acid Assembly Cleaner (ranitidi ne) daily 12/03 completed 0; Recorded 12/31/19 20 8:24AM by Francoise Tucker LPN, Office Visit; Not Available Not Available Not Available Vitals Date Recorded Body height Body mass index (BMI) Body weight Oxygen saturation Oxygen saturation in Arterial blood by Pulse oximetry Heart rate Respiratory rate Body temperature Systolic And Diastolic Provider Name and Address Organization Details Last Updated DateTime 4 167.64 cm 26.6 kg/m2 73302.7 4 g 99 % 99 % 103 /min 18 /min 98.9 [degF] 136/82 mm[Hg] Talon George [facility] 4 14:26:51 Date Recorded Body height Body mass index (BMI) Body weight Oxygen saturation Oxygen saturation in Arterial blood by Pulse oximetry Heart rate Respiratory rate Body temperature Provider Name and Address Organization Details Last Updated DateTime 3 167.64 cm 28.4 kg/m2 01091.6 6 g 95 % 95 % 108 /min 18 /min 97.7 [degF] YENY CHAVEZ [facility] 3 14:45:55 Date Recorded Body height Oxygen saturation Oxygen saturation in Arterial blood by Pulse oximetry Heart rate Respiratory rate Body temperature Body mass index (BMI) Body weight Systolic And Diastolic Provider Name and Address Organization Details Last Updated DateTime 4 167.64 cm 98 % 98 % 96 /min 16 /min 98.2 [degF] 25.8 kg/m2 60098.7 8 g 128/68 mm[Hg] Zara Schustersabino [facility] 4 13:38:42 Social History None recorded. Functional Status None recorded. Mental Status None recorded. Family History Nothing Reported. Medical History No medical history recorded. Gynecological HistoryNo gynecological history recorded. Obstetrics History GPAL:G 0 P 0 0 0 0 Past Encounters Encounter ID Performer Location Encounter Start Date Encounter Closed Date Diagnosis/Indication Diagnosis SNOMED-CT Code Diagnosis ICD10 Code Diagnosis IMO Codes Diagnosis Note [id number] [facility] ([facility]) [address] [place] [phone] 11/27/2022 14:17:54 11/27/2022 16:45:02 Dysuria 12816134 R30.0 Will send urine for culture and call patient with results. Right flank pain 1737978 09 R10.9 Start meloxicam daily today. Can take Zofran PRN. Stop tramadol. Large left kidney stone noted on x-ray. Will wait for radiology over read for confirmati on. If kidney stone is confirmed, will refer to urology. Patient is not currently experienci ng pain on the left side, so no urgent referral is needed at this time. Will start meloxicam and monitor symptoms. Acute urin shu tract infection 100254158 N39.0 UA was indicative of a UTI today. Start Macrobid BID x5 days, take as prescribed . Encouraged to increase water intake and decrease caffeine and sugary drinks. If still having symptoms after completion of antibiotic s, recommend a urine re-check. Urine was sent for culture. Will call with culture results. If worsening condition or no improvemen t in 3-5 days, recommend returning for re-evaluat ion. Patient verbalized understand ing. [id number] [facility] ([facility]) [address] [place] [phone] 08/20/2023 13:44:48 08/20/2023 15:01:24 Dysuria 22636535 R30.0 Will send urine for culture and call patient with results. Flank pain 781419962 R10 .9 Kidney stone 97451117 N2 0.0 X-ray does show a renal stone on the left. Patient states she has pain medication at home. Will start tamsulosin and ondansetro n PRN today. Patient encouraged to keep follow up with urologist next week. If pain worsens, will need to go to ED. Patient is agreeable to plan of care. [id number] [facility] ([facility]) [address] [place] [phone] 12/04/2023 13:25:29 12/04/2023 14:22:01 Strain of right quadriceps muscle 2554873407 9310728 S76.111A Nausea 496733493 R11.0 due to alpha-gal Health Concerns Section Related Observation LastModified by Organization Detai ls LastModified Time None Recorded Concern Status LastModified by Organization Details LastModified Time None Recorded Advance Directives Directive None Recorded Payers Insurance Date Sequence Insurance Name Policy Number Policy Calixto Covered Member ID Calixto Member ID Guarantor Name 12/04/2023 1 [id number] [place] [address] Nilsa Bernard [id number] Nilsa Bernard 11/27/2022 1 *SELF PAY* As dennis Bernard Notes Date Note Type Note Provider Name and Address Organization Details Recorded Time 11/28/19 23 text/htm l Back PainReported by PatientHPIFor severity, patient reportsworsening,interferes with sleep, andinterferes with work. For associated symptoms, patient reportsbladder dysfunctionbut reportsno fever. For quality, patient reportssharp,pressure, andstabbing. For duration, patient reports5 days. For timing, patient reportsgradualandrecurrent episode.ROS as noted in the HPI PATIENT REPORTS SHE HAS A SIGNIFICANT HISTORY OF KIDNEY STONES AND HAS BEEN HURTING FOR ABOUT 5 DAYS, PAIN HAS WORSENED SINCE THEN. PATIENT IS NOW HAVING URINARY FREQUENCY, URGENCY, HEMATURIA, AND NAUSEA AND VOMITING FROM PAIN. DENIES FEVER Brayden Miguel MD [address] [place] [address], [phone], [facility], [facility] 11/28/2022 08:30:44 08/20/19 24 text/htm l Lower Urinary Tract Symptoms (LUTS)Reported by PatientHPIFor context, patient reportsabnormal voiding frequencybut reportschanges in voiding affect quality of life,history of kidney stones,history of urethral dilation, andhas seen urologist. For associated symptoms, patient reportsabdominal pain,groin pain,low back pain,hesitancy, andempties poorly. For location, patient reportsbladderandbilateral. For quality, patient reportsstabbingandcontinuous. For severity, patient reportsworsening. For onset/timing, patient reportsconstant. For alleviating factors, patient reportsheat.ROS as noted in the HPI Patient is a 38 year old female who presents to the walk in clinic today for bilateral flank pain with the worst being on the left. Patient states she has been struggling with kidney stones for several months and she feels like she has one moving as she is having worse pain and decreased urine output today. Patient states she cannot get into her urologist until next week but her urologist recommended she come here today for an x-ray to see if there is a stone. Denies blood in urine. Is taking tramadol for pain. ADAN FAROOQ, [employer] [address] [place], [address], [facility] 08/25/2023 21:52:13 12/04/19 24 text/htm l Musculoskeletal PainReported by PatientHPIFor quality, patient reportssharp. For associated symptoms, patient reportsweak limbsbut reportsno fever. For adls affected, patient reportswalking. For location, (left leg).pain is a 7 out of 10, pain in right thigh area, denies any pain in her backROS as noted in the HPI walk-in patientpatient is here today for right upper leg pain that started when playing kick ball 6 days ago, patient then tripped over her cat today and injured it again and now she can stand on it. COREY MARSHALL, GENERATION MECHANIC HELPER [address] [place], [address], [facility] 12/04/2023 14:14:15 OBGyn Episode No OBEpisode recorded.
--- OUTSIDE RECORDS SUMMARY | 2025-04-03 20:45 | XMS_ITS | Patient Health Record ---
Author Organization [facility], [facility] Address [address] [place] [address] Care Team Providers Care Workers Compensation Administrator Name Role Phone JANETT BETANCOURT Unavailable [phone] JYOTSNA BENITEZ Unavailable [phone] Allergies Allergen (clinical drug ingredient) Drug/Non Drug Allergy documented on EMR Reaction Allergy Type Onset Date Status alpha gal (uncoded) Unknown Allergy Active gloria dishsoap (uncoded) Unknown Allergy Active Results Component Value Reference Range Notes Urinalysis, Routine Reviewed date:07/20/2024 04:06:07 PM Interpretation: Performing Lab: Notes/Report: Urine-Color light red Appearance cloudy Glucose - Bilirubin - Ketones +- Specific [place] 1.015 Occult Blood 3+ pH 6.5 Urine Protein 3+ Urobilinogen,Semi-Qn - Nitrite, Urine - WBC Esterase 3+ POCT- HCG NC Reviewed date:07/21/2024 04:46:16 PM Interpretation: Performing Lab: Notes/Report: POCT- HCG NC Negative Control HCG Valid Testing perform ed at: [address] [place] [address] CLIA ID [id number] Glucometer WBG Reviewed date:07/21/2024 04:46:16 PM Interpretation: Performing Lab: Notes/Report: Glucometer WBG 88 65-110 MG/DL Meter: [id number]~Meat Clerk: [id number] ALBERT ELVIA Testing performed at: [address] [place] [address] CLIA ID [id number] Stone Analysis (Calculi) Reviewed date:07/27/2024 08:36:42 AM Interpretation: Performing Lab: Notes/Report: Calculi Mass 24 Calculi Description See Note Specimen consists of numerous brown and su calculi fragments. The total weight is 24 mg. Calculi Composition See Note Calculi composed primarily of: 40% calcium oxalate dihydrate, and 60% calcium phosphate (hydroxy- and carbonate- apatite). INTERPRETIVE INFORMATION: Calculi (Stone) analysis Calculi are the products of physiological processes that yield crystalline compounds in a matrix of biological compounds and blood. Matrix components are not reported. The clinically significant crystalline components identified in calculi specimens are reported. Gross description may not be consistent with composition determined by FTIR analysis. Performed By: [facility] [address] [place] [address] Equipment Lead: John Granados MD, PhD CLIA Number: [id number] Testing performed at: [address] [place] [address] CLIA ID [id number] POCT- HCG NC Reviewed date:07/29/2024 05:09:35 PM Interpretation: Performing Lab: Notes/Report: POCT- HCG NC Negative Control HCG Valid Testing perform ed at: [address] [place] [address] CLIA ID [id number] Stone Analysis (Calculi) Reviewed date:07/27/2024 08:36:45 AM Interpretation: Performing Lab: Notes/Report: Calculi Mass 20 Calculi Description See Note Specimen consists of two brown and su calculi fragments. The total weight is 20 mg. Calculi Composition See Note Calculi composed primarily of: 60% calcium oxalate dihydrate, and 40% calcium phosphate (hydroxy- and carbonate- apatite). INTERPRETIVE INFORMATION: Calculi (Stone) analysis Calculi are the products of physiological processes that yield crystalline compounds in a matrix of biological compounds and blood. Matrix components are not reported. The clinically significant crystalline components identified in calculi specimens are reported. Gross description may not be consistent with composition determined by FTIR analysis. Performed By: [facility] [address] [place] [address] Equipment Lead: John Granados MD, PhD CLIA Number: [id number] Testing performed at: [address] [place] [address] CLIA ID [id number] Basic Metabolic Panel Reviewed date:07/08/2024 04:39:28 PM Interpretation: Performing Lab: Notes/Report: Use of this assay is not recommended for patients undergoing treatment with phenindione, due to the potential for falsely depressed results. Testing performed at: [address] [place] [address] CLIA ID [id number] Calculation performed from GFR calculator provided by the [employer]. Glomerular Filtration rate(GRF) is the best overall index of kidney function. Normal GFR varies according to age,sex, body size, and declines with age. The National Kid[employer] Foundation recommends using the CKD-EPI Creatinine Equation(2020) to estimate GFR. Y-bmzecc-x-benzoquinone imine (NAPQI) is a metabolite of acetaminophen, NAPQI concentrations of apparoximately 10 mg/L correlation to toxic levels of acetaminophen demonstrates a greater than or equil to 10% change in results. NAPQI concentrations greater than this may lead to falsely depressed results for patient samples. Testing performed at [facility], [address] [place], [place] [address] [address]. CLIA ID#: [id number] Sodium 138 136-145 MMOL/L Potassium 4.7 3.5-5.1 MMOL/L Chloride 104 98-107 MMOL/L CO2 26.4 20.0-31.0 MMOL/L Glucose Serum 97 71-110 MG/DL BUN 18 7-21 MG/DL Creat 1.43 .51-1.17 MG/DL GFR 47.9 Anion Gap 12 5-15 BUN/Creat Ratio 12.6 12.0-20.0 % Calcium 10.6 8.7-10.4 MG/DL Osmo Serum,Calculated 288 280-300 MOSM/KG CBC w/ Manual Diff Reviewed date:07/08/2024 04:39:25 PM Interpretation: Performing Lab: Notes/Report: Testing performed at: [address] [place] [address] CLIA ID [id number] WBC 9.9 4.5-11.0 X10'3 RBC 4.00 4.00-5.20 X10'6 Hgb 14.5 12.0-16.0 G/DL Hct 40.5 36.0-46.0 % MCV 101.3 80.0-100.0 FL MCH 36.3 27.0-31.0 PG MCHC 35.8 31.0-37.0 G/DL Platelet 300 150-400 X10'3 RDW-SD 45.3 35.0-49.0 FL RDW-CV 12.0 12.2-15.6 % MPV 9.9 9.2-12.0 FL Band/Segs Man 80 40-70 % Lymph Man 9 22-44 % Monocyte Man 11 3-7 % Eos Man 0 2-4 % Basophil Man 0 0-1 % PLT Appear Adequate RBC Morph Normal Morph Band Man 0 5-11 % zzzRetrograde Urography Reviewed date:07/09/2024 02:17:12 PM Interpretation: Performing Lab: Notes/Report: See Below For Report Retrograde Urography Read See Below For Report Basic Metabolic Panel Reviewed date:07/09/2024 09:01:49 AM Interpretation: Performing Lab: Notes/Report: Testing performed at [facility], [address] [place] [address] [place] [address]. CLIA ID#: [id number] C-gieoeu-n-benzoquinone imine (NAPQI) is a metabolite of acetaminophen, NAPQI concentrations of apparoximately 10 mg/L correlation to toxic levels of acetaminophen demonstrates a greater than or equil to 10% change in results. NAPQI concentrations greater than this may lead to falsely depressed results for patient samples. Calculation performed from GFR calculator provided by the [employer]. Glomerular Filtration rate(GRF) is the best overall index of kidney function. Normal GFR varies according to age,sex, body size, and declines with age. The National Kidney Foundation recommends using the CKD-EPI Creatinine Equation(2020) to estimate GFR. Testing performed at: [address] [place] [address] CLIA ID [id number] Use of this assay is not recommended for patients undergoing treatment with phenindione, due to the potential for falsely depressed results. Sodium 136 136-145 MMOL/L Potassium 3.9 3.5-5.1 MMOL/L Chloride 101 98-107 MMOL/L CO2 27.5 20.0-31.0 MMOL/L Glucose Serum 256 71-110 MG/DL BUN 20 7-21 MG/DL Creat 1.06 .51-1.17 MG/DL GFR 68.3 Anion Gap 11 5-15 BUN/Creat Ratio 18.9 12.0-20.0 % Calcium 10.2 8.7-10.4 MG/DL CBC w/ Auto Diff Reviewed date:07/09/2024 08:58:03 AM Interpretation: Performing Lab: Notes/Report: Testing performed at: [address] [place] [address] CLIA ID [id number] WBC 5.0 4.5-11.0 X10'3 RBC 3.91 4.00-5.20 X10'6 Hgb 13.5 12.0-16.0 G/DL Hct 40.0 36.0-46.0 % MCV 102.3 80.0-100.0 FL MCH 34.5 27.0-31.0 PG MCHC 33.8 31.0-37.0 G/DL Platelet 283 150-400 X10'3 RDW-SD 44.7 35.0-49.0 FL RDW-CV 11.9 12.2-15.6 % MPV 10.2 9.2-12.0 FL Neutro Auto% 90.9 40.0-70.0 % Lymph Auto% 6.9 22.0-44.0 % [place] Auto% 2.0 3.0-7.0 % Eos Auto% .0 2.0-4.0 % Baso Auto% 0.0 0.0-1.0 % Imm Gran% .2 .0-.4 % Neutro Abs 4.50 .80-7.70 Absolute Neutrophil Count 4500 Lymph Abs .34 .10-4.10 [place] Abs .10 .20-1.00 Eos Abs .00 .00-.40 Baso Abs .00 .00-.20 Imm Gran Abs .01 .00-.10 NRBC# .00 .00-.20 X10'3 NRBC% .00 .00-.20 /100 intact WBC's Culture Urine Reviewed date:07/13/2024 08:10:47 AM Interpretation: Performing Lab: Notes/Report: Testing performed at: [address] [place] [address] CLIA ID [id number] Culture Urine KIN [place] Culture Urine t: Culture Urine Culture Urine Accessio [id number] Culture Urine n: Culture Urine Microbiology Culture Urine PROCEDURE: Culture Urine [] Culture Urine SOURCE: Urine BODY SITE: Culture Urine COLLECTED DATE/TIME: 07/09/2024 09:13 DRYING OVEN ATTENDANT RECEIVED DATE/TIME: 07/09/2024 09:32 DRYING OVEN ATTENDANT Culture Urine START DATE/TIME: 07/09/2024 09:32 DRYING OVEN ATTENDANT FREE TEXT SOURCE: Culture Urine FINAL REPORT Culture Urine Final Report [] Culture Urine Verified Date/Time: 07/11/2024 08:27 DRYING OVEN ATTENDANT Culture Urine No growth at 48 hours Hemoglobin A1c Reviewed date:07/09/2024 10:08:46 AM Interpretation: Performing Lab: Notes/Report: Interpretation Of Hgb A1c: 4.5-6.2 % nondiabetics. >7.0 % diabetics. Estimated Average Glucose(EAG). Testing performed at: [place] [address] CLIA ID [id number] Hgb A1c 4.2 3.8-6.4 % EAG 74 Urinalysis, Routine Reviewed date:08/10/2024 03:32:05 PM Interpretation: Performing Lab: Notes/Report: Urine-Color light red Appearance cloudy Glucose - Bilirubin - Ketones - Specific [place] 1.020 Occult Blood 3+ pH 6.5 Urine Protein 2+ Urobilinogen,Semi-Qn - Nitrite, Urine - WBC Esterase 2+ Reason For Referral No Information Medications Medication SIG (Take, Route, Fr equency, Duration) Notes Start Date End Date Status Ondansetron HCl 4 MG 1 tablet Orally Once a day liquid Active Benadryl liquid Active oxyCODONE HCl liquid Active Problems Problem Type SNOMED Code ICD Code Onset Dates Problem Status W/U Status Risk Notes Problem Calculus of kidney (00758833) Calculus of kidney (N20.0) Active confirmed Problem Gross hematuria (305812935) Gross hematuria (R31.0) Active confirmed Problem Retained ureteral stent (453534939) Ureteral stent retained (Z96.0) Active confirmed Problem Ureteral stent present (Z96.0) Active confirmed Problem Kidney stone (75585952) Kidney stone (N20.0) Active confirmed Vital Signs Heart Rate 85 /min 07/20/2024 Temperature 97.5 degrees Fahrenheit 07/08/2024 Blood pressure diastolic 76 mm Hg 07/20/2024 Height-cm 165.1 cm 08/10/2024 Weight-kg 77.11 kg 08/10/2024 Height 65 in 08/10/2024 Blood pressure systolic 103 mm Hg 07/20/2024 Weight 170 lbs 08/10/2024 BMI 28.29 kg/m2 08/10/2024 Encounters Encounter Location Date Provider Diagnosis [facility] [address] [place] [address] 07/21/2024 JYOTSNA BENITEZ [facility] [address] [place] [address] 10/26/2024 JYOTSNA BENITEZ Foreign body in othe r parts of genitourinary tract, initial encounter T19.8XXA ; Calculus of kidney N20.0 ; Ureteral stent retained Z96.0 ; Ureteral stone N20.1 ; Hydronephrosis of right kidney N13.30 ; Bilateral flank pain R10.9 ; Gross hematuria R31.0 ; History of nephrolithiasis Z87.442 and Family history of kidney stones Z84.1 [facility] [employer], [facility] [address] [place] [address] 07/08/2024 JANETT BETANCOURT Ureteral stone N20.1 ; Bilateral flank pain R10.9 ; Hydronephrosis of right kidney N13.30 ; Gross hematuria R31.0 ; Nausea & vomiting R11.2 ; History of nephrolithiasis Z87.442 and Family history of kidney stones Z84.1 [facility] [address] [place] [address] 07/20/2024 JANETT BETANCOURT Preoperative examina tion Z01.818 ; Ureteral stent retained Z96.0 ; Ureteral stone N20.1 ; Hydronephrosis of right kidney N13.30 ; Bilateral flank pain R10.9 ; Gross hematuria R31.0 ; History of nephrolithiasis Z87.442 and Family history of kidney stones Z84.1 [facility] [employer], [facility] [address] [place] [address] 08/10/2024 JYOTSNA BENITEZ Foreign body in othe r parts of genitourinary tract, initial encounter T19.8XXA ; Calculus of kidney N20.0 ; Ureteral stent retained Z96.0 ; Ureteral stone N20.1 ; Hydronephrosis of right kidney N13.30 ; Bilateral flank pain R10.9 ; Gross hematuria R31.0 ; History of nephrolithiasis Z87.442 and Family history of kidney stones Z84.[address] [employer] [address] [place] [address] 07/09/2024 JANETT BETANCOURT Ureteral stent prese nt Z96.0 [employer] [address] [place] [address] 07/16/2024 JYOTSNA BENITEZ Assessments Encounter Date Diagnosis (ICD Code) Assessment Notes Treatment Notes Treatment Clinical Notes Section Notes 07/09/2024 Ureteral stent present (ICD-10 - Z96.0) 07/20/2024 Ureteral stent retained (ICD-10 - Z96.0) 07/20/2024 Preoperative examination (ICD-10 - Z01.818) 10/26/2024 Foreign body in other parts of genitourinary tract, initial encounter (ICD-10 - T19.8XXA) 39 yo female s/p bilateral URS on 07/21. R stent removed today without issue. Plan: -RTC in 2 months with BMP, PTH and LithoLink all questions answered 08/10/2024 Calculus of kidney (ICD-10 - N20.0) 1. Discussed the possibility of ureteral spasm following stent removal and the need for hydration and analgesic support as well as the fact that it should resolve in the next 24-48 hours. 2. Next follow up in 6 weeks with a KUB and renal ultrasound for residual calcifications or hydronephrosis respectively. 39 yo female s/p bilateral URS on 07/21. R stent removed today without issue. Plan: -RTC in 2 months with BMP, PTH and LithoLink all questions answered 08/10/2024 Foreign body in other parts of genitourinary tract, initial encounter (ICD-10 - T19.8XXA) 39 yo female s/p bilateral URS on 07/21. R stent removed today without issue. Plan: -RTC in 2 months with BMP, PTH and LithoLink all questions answered 07/08/2024 Ureteral stone (ICD-10 - N20.1) 07/08/2024 Bilateral flank pain (ICD-10 - R10.9) 07/08/2024 Hydronephrosis of right kidney (ICD-10 - N13.30) 08/10/2024 Ureteral stent retained (ICD-10 - Z96.0) 39 yo female s/p bilateral URS on 07/21. R stent removed today without issue. Plan: -RTC in 2 months with BMP, PTH and LithoLink all questions answered 07/20/2024 Ureteral stone (ICD-10 - N20.1) 10/26/2024 Calculus of kidney (ICD-10 - N20.0) [...] BMP, PTH and LithoLink all questions answered 07/20/2024 Hydronephrosis of right kidney (ICD-10 - N13.30) 08/10/2024 Ureteral stone (ICD-10 - N20.1) 39 yo female s/p bilateral URS on 07/21. R stent removed today without issue. Plan: -RTC in 2 months with BMP, PTH and LithoLink all questions answered 07/08/2024 Gross hematuria (ICD-10 - R31.0) 08/10/2024 Hydronephrosis of right kidney (ICD-10 - N13.30) 39 yo female s/p bilateral URS on 07/21. R stent removed today without issue. Plan: -RTC in 2 months with BMP, PTH and LithoLink all questions answered 07/08/2024 Nausea & vomiting (ICD-10 - R11.2) 07/20/2024 Bilateral flank pain (ICD-10 - R10.9) 10/26/2024 Ureteral stone (ICD-10 - N20.1) 39 [...] BMP, PTH and LithoLink all questions answered 07/20/2024 Gross hematuria (ICD-10 - R31.0) 08/10/2024 Bilateral flank pain (ICD-10 - R10.9) 39 yo female s/p bilateral URS on 07/21. R stent removed today without issue. Plan: -RTC in 2 months with BMP, PTH and LithoLink all questions answered 07/08/2024 History of nephrolithiasis (ICD-10 - Z87.442) 08/10/2024 Gross hematuria (ICD-10 - R31.0) 39 yo female s/p bilateral URS on 07/21. R stent removed today without issue. Plan: -RTC in 2 months with BMP, PTH and LithoLink all questions answered 07/08/2024 Family history of kidney stones (ICD-10 - Z84.1) 07/20/2024 History of nephrolithiasis (ICD-10 - Z87.442) 10/26/2024 Bilateral flank pain (ICD-10 - R10.9) [...] BMP, PTH and LithoLink all questions answered 07/20/2024 Family history of kidney stones (ICD-10 - Z84.1) 08/10/2024 History of nephrolithiasis (ICD-10 - Z87.442) 39 yo female s/p bilateral URS on 07/21. R stent removed today without issue. Plan: -RTC in 2 months with BMP, PTH and LithoLink all questions answered 08/10/2024 Family history of kidney stones (ICD-10 - [...] BMP, PTH and LithoLink all questions answered 07/08/2024 Other Imaging reviewe d with patient via [facility]. Given presence of bilateral ureteral stones and severity of uncontrolled pain with N/V, recommended emergent bilateral ureteral stent placement, then admission overnight for observation. How the procedure was performed was discussed along with risks/benefits/alt ernatives and postprocedural expectations. She is agreeable. She has not had any thing to eat today. She had her oral Oxycodone about 1230PM. Patient is not on anticoagulation. Denies problems with anesthesia in the past, no new medications or diagnoses since last visit. Labs at [facility] this AM show normal WBC, creatinine 1.1. All questions that were asked were answered and elects to proceed with procedure as scheduled. Patient will RTC postoperatively and is satisfied with plan of care. 07/20/2024 Other Patient schedul ed for B URS, stone manip, stent removal vs. exchange on 07/08/[address] Benitez. How the procedure was performed was discussed along with risks/benefits/alt ernatives and postprocedural expectations. Patient is not on anticoagulation. Denies problems with anesthesia in the past, no new medications or diagnoses since last visit. Urine culture was negative on 07/11/24. All questions that were asked were answered and elects to proceed with procedure as scheduled. Patient will RTC postoperatively and is satisfied with plan of care. Plan Of Treatment Pending Test Test Name Order Date Urinalysis, Routine 07/08/2024 PTH, Intact 08/10/2024 Basic Metabolic Panel 08/10/2024 Insurance Providers Payer Name Payer Address Payer Phone Subscriber Number Group Number Insured Name Patient Relationship to Insured Coverage Start Date Coverage End Date Web TPA [address] [place], [place] [id number] [address] [place] [address] Marco Antonio Kin Self - patient is the insured Medical (General) History Medical History History ICD Code kidney stones Surgical History Surgery Date(Month/Year) kidney stone removal (several) wisdom teeth removal bunionectomy stents placed in kidney Hospitalization History Reason Date(Month/Year) one night for stents to be placed
[2025-04-03 21:18] LABS: Hematocrit 42.9 % (36-47); Hemoglobin 15.30 g/dL (11.27-16.99); Mean Corpuscular HGB Conc 35.7 g/dL (30-55); Mean Corpuscular Hemoglobin 36.1 pg (27-33); Mean Corpuscular Volume 101.2 fl (85-98); Nucleated Red Blood Cells % 0 %; Platelet Count 316 10^3/cmm (157-399); Red Blood Count 4.24 10^6/uL (3.85-5.65); White Blood Count 5.82 10^3/uL (3.29-11.43)
[2025-04-03 21:35] LABS: Alanine Aminotransferase 27 U/L (0-33); Albumin Level 5.0 g/dL (3.5-5.2); Alkaline Phosphatase 58 U/L (35-105); Anion Gap 19.1 (5-19); Aspartate Amino Transferase 24 U/L (0-32); Blood Urea Nitrogen 13 mg/dL (6-20); Calcium 10.0 mg/dL (8.5-10.5); Carbon Dioxide 21 mmol/L (22-29); Chloride 99 mmol/L (98-107); Creatinine Clr Calc Pharmacy 127.1262; Globulin 2.8 g/dL (1.3-4.6); Glucose 100 mg/dL (65-115); Lipase 11 U/L (13-60); Osmolality Calculated 280 mOsm/kg (285-295); Potassium 4.1 mmol/L (3.5-5.1); Sodium 135 mmol/L (136-145); Total Protein 7.8 g/dL (6.6-8.7)
[2025-04-03 21:46] LABS: HCG, Serum Qual Negative (Negative)
--- NOTE | 2025-04-03 22:13 | CTR_ITS ---
PROCEDURE INFORMATION: Exam: CT Abdomen And Pelvis Without Contrast Exam date and time: 04/03/2025 10:41 PM Age: 40 years old Clinical indication: Abdominal pain; Other: Bilateral flank; Prior surgery; Surgery date: 6+ months; Surgery type: Lithotripsy x4; Additional info: Flank pain TECHNIQUE: Imaging protocol: Computed tomography of the abdomen and pelvis without contrast. Radiation optimization: All CT scans at this facility use at least one of these dose optimization techniques: automated exposure control; mA and/or kV adjustment per patient size (includes targeted exams where dose is matched to clinical indication); or iterative reconstruction. COMPARISON: CT kidney stone [id number] 07/08/2024 2:30 AM RADIATION DOSE METRICS: Total DLP (mGy-cm): 618.69 FINDINGS: Liver: Normal. No mass. Gallbladder and biliary ducts: Normal. No calcified stones. No ductal dilation. Pancreas: Normal. No ductal dilation. Spleen: Normal. No splenomegaly. Adrenal glands: Normal. No mass. Kidneys and ureters: Nonobstructing renal calculi bilaterally. Stomach and bowel: Scattered colonic diverticula without definite significant acute inflammatory changes. Appendix: No evidence of appendicitis. Intraperitoneal space: Unremarkable. No free air. No significant fluid collection. Vasculature: Aortic atherosclerosis. Lymph nodes: Unremarkable. No enlarged lymph nodes. Urinary bladder: Unremarkable as visualized. Reproductive: Unremarkable as visualized. Bones/joints: Unremarkable. No acute fracture. Soft tissues: Unremarkable. CT/CT kidney stone [id number] IMPRESSION: Nonobstructing renal calculi bilaterally. No definite acute obstructive uropathy.
[2025-04-03 22:18] VITALS: BP 113/79; PULSE 105; RESP 16; O2SAT 97
[2025-04-03 22:20] LABS: Glucose Urine UA Norm (Normal); Nitrate Urine Negative (Negative); Specific Gravity, Urine 1.020 (1.005-1.030)
[2025-04-03] MEDS: morphine 4 mg/mL SDV 1 mL IVP (22:23)
[2025-04-03] MEDS: ondansetron 2 mg/ML SDV 2 mL 4 MG IVP (22:23)
[2025-04-03 22:31] VITALS: BP 102/61; PULSE 76; RESP 16; O2SAT 92
[2025-04-03 22:41] LABS: UA Manual Slide Review YES
[2025-04-03 22:42] LABS: Add Urine Microscopic? YES
[2025-04-03 23:16] VITALS: BP 104/65; PULSE 78; RESP 16; O2SAT 95
[2025-04-03 23:40] VITALS: BP 112/64; PULSE 62; RESP 16; O2SAT 91
--- NOTE | 2025-04-04 00:06 | ED_ITS ---
HPI - Abdominal Pain 2 General: Chief Complaint: Abdominal Pain Stated Complaint: N,V Back,Side Pain Time Seen by Provider: 04/03/25 21:57 History of Present Illness: Patient is a 40-year-old female who presents with bilateral flank pain that began yesterday. The pain is more prominent on the right side and radiates toward the front, while the left-sided pain remains posteriorly located. The patient reports associated vomiting and difficulty regulating temperature with episodes of feeling hot and cold alternately. She describes sudden episodes of not feeling well, breaking out in sweats, and vomiting. The patient has a significant history of kidney stones, having undergone 5-6 kidney stone surgeries previously. She states the current pain feels familiar to her previous kidney stone episodes. The patient initially attempted to manage symptoms at home and was planning to wait until Saturday to see her urologist, but symptoms became intolerable, prompting today's visit. Related Data Home Medications ?Medication ?Instructions ?Recorded ?Confirmed diphenhydramine HCl 25 mg capsule 25 - 50 mg PO TID ME N Allergy 12/04/22 09/17/24 (Benadryl) Symptoms ibuprofen 200 mg tablet 600 mg PO Q6H PRN Pain 12/0409/17/24 etonogestrel 68 mg subdermal subdermal 09/17/24 implant (Nexplanon) Previous Rx's ?Medication ?Instructions ?Recorded buspirone 10 mg tablet 10 mg PO TID PRN Anxiety #90 tabs 01/10/23 albuterol sulfate 2.5 mg/3 mL 2.5 mg (3 mL) inhalation Q4H PRN 06/08/24 (0.083 %) solution for nebulization shortness of breat h or wheezing #180 mL albuterol sulfate 90 mcg/actuation 2 puff inhalation 6 XD PRN 06/08/24 aerosol inhaler (Ventolin HFA) shortness of breath or wheezing #8.5 grams levofloxacin 500 mg tablet 500 mg PO DAILY 7 days #7 t abs 09/21/24 metronidazole 500 mg tablet 500 mg PO BID 7 days #14 t abs 09/21/24 cephalexin 500 mg tablet 500 mg PO Q6H 7 days #28 tab s 04/04/25 hydrocodone 5 mg-acetaminophen 325 1 tab PO Q8H PRN pa in #7 tabs 04/04/25 mg tablet ketorolac 10 mg tablet 10 mg PO TID PRN pain #10 ta bs 04/04/25 ondansetron 4 mg disintegrating 4 mg PO Q8H PRN nausea and 04/04/25 tablet vomiting #20 tabs Allergies Allergy/AdvReac Type Severity Reaction Status Date / Time Alpha-Gal Allergy Unknown Verified 09/17/24 11:26 (Iabypngyd-Pghgr-2,3-Gala beef derived (bovine) Allergy ALGY-Hives Verified 09/17/24 11:26 gelatin Allergy ALGY-Hives Verified 09/17/24 11:26 pork derived (porcine) Allergy ALGY-Hives Verified 09/17/24 11:26 PFSH ED 2 PFSH: Medical History (Updated 04/04/25 @ 00:29 by Franc Jacob DO) GERD (gastroesophageal reflux disease) Smoker unmotivated to quit Elevated parathyroid hormone URI with cough and congestion Reactive airway disease Chronic nausea Allergic rhinitis due to allergen Anxiety and depression Allergy to alpha-gal Urolithiasis Renal atrophy, left Hydronephrosis, left Kidney stones Pyelonephritis ASCUS with positive high risk HPV cervical Surgical History Hx of oral surgery (Unknown) Hx of foot surgery (Unknown) x 2 H/O lithotripsy (Unknown) x 3 Family History Mother Thyroid disease Thyroid cancer Denies family history of Colon cancer Ovarian cancer Diabetes Clotting disorder Hyperlipidemia Breast cancer Anesthesia complication Bleeding disorder Hypertension Uterine cancer Stroke Social History Smoking and tobacco/nicotine status: unknown if used tobacco/nicotine Alcohol intake: current Alcohol intake frequency: 3 or more drinks per day Alcohol type: hard liquor Substance/Drug Use: never Marital status: Current occupational status: unemployed Physical Exam 2 Const: COMMON NORMALS: no acute distress GENERAL APPEARANCE: cooperative; not ill appearing and not frail appearing HENMT: COMMON NORMALS: normocephalic, atraumatic and Normal external nose present HEAD & SCALP: normocephalic and atraumatic FACE & SINUS: normal facial exam and face symmetric NOSE: Normal external nose present Eye: COMMON NORMALS: Equal, round and reactive pupils present and EOMs intact bilaterally PUPIL: Yes Equal, round and reactive pupils present Neck/C-Spine: GENERAL: Yes trachea midline Chest: CHEST: Yes Symmetrical chest wall rise Resp: COMMON NORMALS: normal respiratory effort, No retractions, No use of accessory muscles and clear to auscultation bilaterally AUSCULTATION: clear to auscultation bilaterally Cardio: COMMON NORMALS: regular rate and regular rhythm RATE: regular rate RHYTHM: regular rhythm GI: COMMON NORMALS: Normal to inspection, nondistended, normoactive bowel sounds present PALPATION: Yes Tenderness to palpation present (GI) Details: RLQ and Yes Guarding due to palpation present (GI) : BLADDER/KIDNEY EXAM: Yes CVA tenderness on the right Back/Pelvis: GENERAL BACK: Yes CVA tenderness Extremity: COMMON NORMALS: no pedal edema Neuro: ESSENCE COMA SCALE: document GCS findings [place] coma scale eye opening: Spontaneous [place] coma scale verbal response: Orientated Essence coma scale motor response: Obey commands [place] coma scale total score: 15 S ENSORY EXAM: Yes extremities (intact) Psych: COMMON NORMALS: speech normal SPEECH: Yes normal speech Skin: COMMON NORMALS: no rashes or lesions noted GENERAL SKIN EXAM: no rashes or lesions noted Course 2 Vital Signs: Vital signs: Vital Signs Temperature 98.0 F 04/03/25 20:40 Pulse Rate 72 04/04/25 00:45 Respiratory Rate 16 04/04/25 00:45 Blood Pressure 107/60 04/04/25 00:45 Pulse Oximetry 95 04/04/25 00:45 Oxygen Delivery Me thod Room Air 04/03/25 20:40 MDM - Abdominal Pain Medical Decision Making Vitals are stable here. She is afebrile. CBC is normal. BMP is not remarkable. Liver enzymes show bilirubin of 1.7 with no other abnormalities. Lipase is normal. CT shows nonobstructing renal calculi bilaterally.There is no evidence of appendicitis. Urinalysis shows 1+ leukocyte esterase with 10-15 whites 21-50 reds. Bacteria is 2+. Sample is contaminated. CRP is 3. She will receive abx for UTI, symptom control. Stable for DC. Outpt follow up. Return for new or worsening sympotms. Lab Data 04/03/25 21:13 04/03/25 21:13 Labs/Radiology: Radiology Impressions Abdomen/Pelvis CT 04/03/25 22:13 IMPRESSION: Nonobstructing renal calculi bilaterally. No definite acute obstructive uropathy. Laboratory Results WBC 5.82 10^3/uL (3.29-11.43) 04/03/25 21:13 RBC 4.24 10^6/uL (3.85-5.65) 04/03/25 21:13 Hgb 15.30 g/dL (11.27-16.99) 04/03/25 21:13 Hct 42.9 % (36-47) 04/03/25 21:13 MCV 101.2 fl (85-98) H 04/03/25 21:13 MCH 36.1 pg (27-33) H 04/03/25 21:13 MCHC 35.7 g/dL (30-55) 04/03/25 21: RDW 11.9 % (12.1-15.1) L 04/03/25 21:13 Plt Count 316 10^3/cmm (157-399) 04/03/25 21:13 MPV 9.3 fL (7.4-10.4) 04/03/25 21:13 Neut % (Auto) 65.6 % 04/03/25 21:13 Lymph % (Auto) 23.0 % 04/03/25 21:13 [place] % (Auto) 8.8 % 04/03/25 21:13 Eos % (Auto) 1.9 % 04/03/25 21:13 Baso % (Auto) 0.5 % 04/03/25 21:13 Neut # (Auto) 3.82 10^3/uL (1.8-7.7) 04/03/25 21:13 Lymph # (Auto) 1.3 10^3/uL (0.8-4.8) 04/03/25 21:13 [place] # (Auto) 0.5 10^3/uL (0.2-0.9) 04/03/25 21:13 Eos # (Auto) 0.1 10^3/uL (0.0-0.8) 04/03/25 21:13 Baso # (Auto) 0.0 10^3/uL (0.0-0.1) 04/03/25 21:13 Nucleated RBC % (auto) 0 % 04/03/25 21:13 Nucleated RBCs # 0.0 /100WBC 04/03/25 21:13 Sodium 135 mmol/L (136-145) L 04/03/25 21:13 Potassium 4.1 mmol/L (3.5-5.1) 04/03/25 21:13 Chloride 99 mmol/L (98-107) 04/03/25 21:13 Carbon Dioxide 21 mmol/L (22-29) L 04/03/25 21:13 Anion Gap 19.1 (5-19) H 04/03/25 21:13 BUN 13 mg/dL (6-20) 04/03/25 21:13 Creatinine 0.6 mg/dL (0.5-0.9) 04/03/25 21:13 GFR Calculation 110.7 mL/min (90-130) 04/03/25 21:13 Glucose 100 mg/dL (65-115) 04/03/25 21:13 Calculated Osmolality 280 mOsm/kg (285-295) L 04/03/25 21:13 Calcium 10.0 mg/dL (8.5-10.5) 04/03/25 21:13 Total Bilirubin 1.7 mg/dL (0.15-1.2) H 04/03/25 21:13 AST 24 U/L (0-32) 04/03/25 21:13 ALT 27 U/L (0-33) 04/03/25 21:13 Alkaline Phosphatase 58 U/L (35-105) 04/03/25 21:13 C-Reactive Protein 3.0 mg/L (0.0-4.9) 04/03/25 21:13 Total Protein 7.8 g/dL (6.6-8.7) 04/03/25 21:13 Albumin 5.0 g/dL (3.5-5.2) 04/03/25 21:13 Globulin 2.8 g/dL (1.3-4.6) 04/03/25 21:13 Lipase 11 U/L (13-60) L 04/03/25 21:13 HCG, Qual Negative (Negative) 04/03/25 21:13 Urine Color [place] (Yellow) A 04/03/25 22:09 Urine Appearance Cloudy (CLEAR) A 04/03/25 22:09 Urine pH 6 (5-7) 04/03/25 22:09 Ur Specific [place] 1.020 (1.005-1.030) 04/03/25 22:09 Urine Protein 1+ (Negative) H 04/03/25 22:09 Urine Glucose (UA) Norm (Normal) 04/03/25 22:09 Urine Ketones 2+ (Negative) H 04/03/25 22:09 Urine Blood 3+ (Negative) H 04/03/25 22:09 Urine Nitrate Negative (Negative) 04/03/25 22:09 Urine Bilirubin 1+ (Negative) H 04/03/25 22:09 Urine Urobilinogen 1 mg/dL (Negative) H 04/03/25 22:09 Ur Leukocyte Esterase 1+ (Negative) H 04/03/25 22:09 Urine RBC 21-50 /hpf (0-2) H 04/03/25 22:09 Urine WBC 10-15 /hpf (0-5) H 04/03/25 22:09 Ur Squamous Epith Cells 11-20 /hpf (0-5) H 04/03/25 22:09 Calcium Oxalate Crystal 10-15 /hpf H 04/03/25 22:09 Amorphous Sediment Not Reportable 04/03/25 22:09 Urine Bacteria 2+ /hpf (NONE) H 04/03/25 22:09 Urine Mucus 3+ /hpf 04/03/25 22:09 All radiology interpretation(s) finalized by discharge Discharge Plan Discharge Patient Disposition: Home Clinical Impression: UTI (urinary tract infection) Condition: Stable Prescriptions: New hydrocodone-acetaminophen 5-325 mg tablet 1 tab PO Q8H PRN (Reason: pain) Qty: 7 0RF ketorolac 10 mg tablet 10 mg PO TID PRN (Reason: pain) Qty: 10 0RF cephalexin 500 mg tablet 500 mg PO Q6H 7 Days Qty: 28 0RF Continued ondansetron 4 mg tablet,disintegrating 4 mg PO Q8H PRN (Reason: nausea and vomiting) Qty: 20 2RF Discontinued oxycodone 5 mg/5 mL solution 10 mg PO Q6H PRN (Reason: pain) 7 Days Qty: 250 0RF ondansetron HCl 4 mg tablet 4 mg PO Q8H PRN (Reason: nausea and vomiting) Qty: 14 0RF No Action Nexplanon 68 mg implant 1 implant subdermal ONCE Qty: 1 0RF buspirone 10 mg tablet 10 mg PO TID PRN (Reason: Anxiety) Qty: 90 3RF Nexplanon 68 mg implant subdermal albuterol sulfate 2.5 mg /3 mL (0.083 %) solution for nebulization 2.5 mg inhalation Q4H PRN (Reason: shortness of breath or wheezing) Qty: 180 0RF albuterol sulfate [Ventolin HFA] 90 mcg/actuation HFA aerosol inhaler 2 puff inhalation 6XD PRN (Reason: shortness of breath or wheezing) Qty: 8.5 11RF levofloxacin 500 mg tablet 500 mg PO DAILY 7 Days Qty: 7 0RF metronidazole 500 mg tablet 500 mg PO BID 7 Days Qty: 14 0RF diphenhydramine HCl [Benadryl] 25 mg Capsule 25 - 50 mg PO TID PRN (Reason: Allergy Symptoms) ibuprofen 200 mg Tablet 600 mg PO Q6H PRN (Reason: Pain) Discharge Orders: Discharge ED (Routine); Ordered 04/04/25 Ordered By: Franc Jacob Patient Instructions: Urinary Tract Infection in Women (ED), Opioid Safety, Pain Management, Patient Portal & Lory Instructions, Vomiting - Adult Activity Restrictions/Additional Instructions: Medication as directed. Follow a liquid diet until you have not vomited for greater than 12 hours. Advance accordingly. Return for fever greater than 100 ?F despite 2-3 doses of antibiotics, worsening pain despite treatment, other concerning symptoms. Call your doctor for follow-up appointment. Print Language: [place] Coding Level of Care Code ED Airline Reservation Agent for Judson Gould
[2025-04-04 00:11] VITALS: BP 109/63; PULSE 64; RESP 16; O2SAT 93
[2025-04-04] MEDS: cefTRIAXone 1,000 mg SDV 1000 MG IVP (00:43)
[2025-04-04 00:45] VITALS: BP 107/60; PULSE 72; RESP 16; O2SAT 95
== END 2025-04-04 00:53 | disposition home or self-care (01) ==
PROVIDERS: Physician Assistant; Emergency Provider Emergency Medicine
DX: N39.0 Urinary tract infection, site not specified (principal)
CPT/HCPCS: 36415; 74176; 80053; 81001; 83690; 84703; 85025; 86140; 96361; 96374; 96375; 99285; J0696; J1885; J2270; J2405; J7030